=== PATIENT | female | born 1990 | race Caucasian/White ===

== ENCOUNTER 2019-05-14 08:05 | Emergency (ER) | payer MEDICAID, SELFPAY ==
[2019-05-14 08:05] VITALS: PULSE 83; RESP 18; O2SAT 98
[2019-05-14 08:07] VITALS: BP 145/101; PULSE 86; RESP 18; TEMP 36.9; O2SAT 99; BMI 36.0
--- NOTE | 2019-05-14 08:12 | ED_ITS ---
Entered by Kina Hogan, acting as scribe for Melvin Rednon DO HPI - Chest Pain General: Chief Complaint: Chest Pain Stated Complaint: Chest pain Time Seen by Provider: 05/14/19 08:09 Source: patient Mode of arrival: ambulatory Limitations: no limitations History of Present Illness: HPI narrative: 29 yo f came to the er pov for chest pain. Onset was 30-45 min ago. Pt states that she is having mid chest pain right now and pt states that she is feeling a little sob at this time. MD complaint: chest pain Onset (ago): minute(s) (30-45 min ago) Onset: during rest and during exertion Pain location: left chest Pain radiation: none Severity: mild Quality: other (pain) Relieving factors: nothing Exacerbating factors: nothing Associated symptoms: Deny abdominal pain, dyspnea, fever(s), nausea, palpitations, syncope or vomiting Risk Factors: Coronary artery disease risk factors: none Review of Systems Const: Denies: fever Eyes: Denies: change in vision or blurry vision ENMT: Denies: throat pain, oral sores/lesions, dental pain, nasal discharge or nasal congestion Card: Denies: palpitations or syncope Resp: Denies: shortness of breath GI: Denies: abdominal pain, nausea or vomiting : Denies: flank pain, painful urination, urinary frequency, urinary urgency, urinary incontinence or blood in urine Musc: Denies: neck pain, back pain, extremity pain, extremity swelling, joint pain or joint swelling Skin/Breast: Denies: rash, itching or redness Neuro: Denies: headache, numbness in extremities, weakness in extremities, changes in sensation, lack of coordination, difficulty walking, frequent falls, dizziness, vertigo or confusion Psych: Denies: anxiety, depression, loss of interest, visual hallucinations, auditory hallucinations, suicidal ideation or homicidal ideation Endo: Denies: excessive urination, excessive thirst, tired all the time or cold intolerance Frandy/Lymph: Denies: easy bruising, easy bleeding, petechiae, enlarged lymph nodes or tender lymph nodes PFSH ED PFSH: Statuses (acute, chronic, etc) shown below reflect problem list status as previously entered and may not be historically accurate Social History Smoking and tobacco status: never smoked Physical Exam Const: COMMON NORMALS: average body habitus, oriented x3 and alert GENERAL APPEARANCE: cooperative, comfortable, well kempt and well developed NUTRITIONAL APPEARANCE: obese ORIENTATION/CONSCIOUSNESS: Yes awake, Yes oriented to person and Yes oriented to place HENMT: COMMON NORMALS: normocephalic, head/scalp atraumatic, EAC's normal, TM's normal bilaterally, external nose normal, moist oral mucous membranes and oropharynx normal HEAD & SCALP: normocephalic and atraumatic NOSE: external nose normal EXTERNAL AUDITORY CANAL: EAC's normal TYMPANIC MEMBRANE: TM's normal bilaterally MOUTH: oral and palatal mucosa normal, lip normal and tongue normal THROAT: posterior oropharynx normal and tonsils normal Eye: COMMON NORMALS: PERRL, EOMs intact bilaterally, conjunctivae normal and no scleral icterus CONJUNCTIVA: Yes conjunctivae normal PUPIL: Yes PERRL Neck/C-Spine: COMMON NORMALS: full ROM, no lymphadenopathy, supple, no meningeal signs and thyroid normal THYROID: thyroid normal and asymmetrical Lymph: LYMPHATIC: no lymphadenopathy noted Resp: COMMON NORMALS: normal respiratory effort, no retractions, no use of accessory muscles and clear to auscultation bilaterally AUSCULTATION: clear to auscultation bilaterally Cardio: COMMON NORMALS: regular rate and regular rhythm RATE: regular rate RHYTHM: regular rhythm HEART SOUNDS: no murmurs GI: COMMON NORMALS: normal to inspection, nondistended, normoactive bowel sounds, soft to palpation and no hepatosplenomegaly PALPATION: Yes soft and Yes no hepatosplenomegaly : COMMON NORMALS: Yes no CVA tenderness BLADDER/KIDNEY EXAM: Yes no CVA tenderness Back/Pelvis: COMMON NORMALS: no CVA tenderness LUMBAR SPINE/LOWER BACK: Yes normal to inspection Extremity: COMMON NORMALS: no clubbing, cyanosis or edema, no calf tenderness and no pedal edema Neuro: COMMON NORMALS: oriented x3 SENSORIUM/ORIENTATION: Yes alert, Yes oriented to person and Yes oriented to place MENINGEAL SIGNS: Yes no meningeal signs Psych: APPEARANCE: Yes well kempt Skin: COMMON NORMALS: no rashes or lesions noted and skin turgor normal GENERAL SKIN EXAM: no rashes or lesions noted and turgor normal Course ED course: Reviewed findings with the patient. Her discomfort is intermittent and spasmodic like suspect it is more reflux. She has very low risk factors. She is not tachycardic or hypoxic and think is a very low likelihood of having a PE. We will go and discharge her home on a PPI Vital Signs: Vital signs: Vital Signs Temperature 98.4 F 05/14/19 08:07 Pulse Rate 89 05/14/19 09:57 Respiratory Rate 16 05/14/19 09:57 Blood Pressure 129/98 05/14/19 09:57 Pulse Oximetry 100 05/14/19 09:57 MDM - Chest Pain Lab Data: Labs: Lab Results 05/14/19 05/14/19 05/14/19 Range/Units 08:19 08:19 08:19 WBC 8.5 (4.0-10.0) 10^3/ uL RBC 4.53 (4.1-5.3) 10^6/u L Hgb 12.4 (11.5-15.3) g/dL Hct 38.1 (37.0-47.0) % MCV 84.1 (81-99) fL MCH 27.4 L (28.0-34.0) pg MCHC 32.5 (30.0-36.0) g/dL RDW 13.0 (12.1-15.1) % Plt Count 318 (130-400) 10^3/c mm MPV 9.2 (7.4-10.4) fL Neut % (Auto) 58.6 % Lymph % (Auto) 32.5 % [place] % (Auto) 6.7 % Eos % (Auto) 1.6 % Baso % (Auto) 0.5 % Neut # (Auto) 5.0 (1.8-7.7) 10^3/u L Lymph # (Auto) 2.8 (0.8-4.8) 10^3/u L [place] # (Auto) 0.6 (0.2-0.9) 10^3/u L Eos # (Auto) 0.1 (0.0-0.8) 10^3/u L Baso # (Auto) 0.0 (0.0-0.1) 10^3/u L Nucleated RBC % (a uto) 0 % Nucleated RBCs # 0.0 /100WBC Sodium 139 (136-145) mmol/L Potassium 3.8 (3.5-5.1) mmol/L Chloride 103 (98-107) mmol/L Carbon Dioxide 23 (22-29) mmol/L Anion Gap 16.8 (5-19) BUN 12 (6-20) mg/dL Creatinine 0.7 (0.5-0.9) mg/dL GFR Calculation 99.6 (90-130) mL/min Glucose 103 (74-109) mg/dL Calcium 10.1 H (8.6-10.0) mg/Dl Total Bilirubin 0.3 (0.15-1.2) mg/dL AST 18 (0-32) U/L ALT 23 (0-33) U/L Alkaline Phosphata se 94 (35-105) IU/L Troponin T Baselin e 6 (0-10) ng/mL Total Protein 7.2 (6.6-8.7) g/dL Albumin 4.9 (3.5-5.2) g/dL Globulin 2.3 (1.3-4.6) g/dL Imaging Data^: CXR: Radiologist's impression: Procedure(s): XR chest 1V portable [id number] Accession Number(s): [id number] Report Number: [id number] WS: [id number] PORTABLE CHEST HISTORY: chest pain COMPARISON: 11/20/2017 Lungs are clear and well expanded. No pleural effusion or pneumothorax. Cardiac size: Normal. Mediastinum/Aorta: Normal mediastinum. No osseous abnormality seen. XR/XR chest 1V portable [id number] IMPRESSION: Unremarkable portable chest. Dictated By:Samanta Sloan DOProcedure(s): XR chest 1V portable [id number] Accession Number(s): [id number] Report Number: [id number] WS: [id number] PORTABLE CHEST HISTORY: chest pain COMPARISON: 11/20/2017 Lungs are clear and well expanded. No pleural effusion or pneumothorax. Cardiac size: Normal. Mediastinum/Aorta: Normal mediastinum. No osseous abnormality seen. XR/XR chest 1V portable [id number] IMPRESSION: Unremarkable portable chest. Dictated By:Samanta Sloan DO EKG Data^: EKG 1: Attestation: I personally reviewed and interpreted this EKG as follows: EKG interpretation date: 05/14/19 EKG interpretation time: 08:14 Prior EKG tracings: not available for review Interpretation: nsr , no acute ST changes Discharge Plan Discharge Patient Disposition: Home, Self-Care Clinical Impression: Chest pain due to gastrointestinal reflux disease Gastro-esophageal reflux Qualifiers: Esophagitis presence: with esophagitis Qualified Code(s): K21.0 - Gastro- esophageal reflux disease with esophagitis Condition: Stable Prescriptions: New omeprazole 20 mg capsule,delayed release(DR/EC) 20 mg PO DAILY 56 Days RF: 0 Discharge Orders: Discharge Order (Routine); Ordered 05/14/19 Ordered By: Melvin Rendon Referrals: Darian Rivera MD [Primary Care Provider] - Discharge Diet: Avoid spicy foods, carbonated beverages and tomato based product s Discharge Activity: Resume usual activity Discharge Date/Time: 05/14/19 09:59 Coding Level of Care Code ED Endoscopy Technician for Chg Fwd Exam Problem Focused The documentation recorded by the Edison russell Stephanie Lyn, accurately reflects the service I personally performed and the decisions made by Justice young Curtis L, DO May 14, 2019 08:05
--- NOTE | 2019-05-14 08:22 | XR_ITS ---
WS: [id number] PORTABLE CHEST HISTORY: chest pain COMPARISON: 11/20/2017 Lungs are clear and well expanded. No pleural effusion or pneumothorax. Cardiac size: Normal. Mediastinum/Aorta: Normal mediastinum. No osseous abnormality seen. XR/XR chest 1V portable [id number] IMPRESSION: Unremarkable portable chest.
--- NOTE | 2019-05-14 08:22 | ECG_ITS ---
Measurements Intervals [place] Rate: 80 P: 48 DC: 155 QRS: 29 QRSD: 89 T: 41 QT: 373 QTc: 433 SINUS RHYTHM INTERPRETATION BASED ON A DEFAULT AGE OF 40 YEARS Compared to ECG 12/13/2018 12:20:47 No significant changes Electronically Signed On 05-14-2019 15:39:29 CONTRACTS [employer] by Shine Lanier M.D. [id number]
[2019-05-14 08:30] LABS: Basophils % 0.5 %; Eosinophils # 0.1 10^3/uL (0.0-0.8); Eosinophils % 1.6 %; Hematocrit 38.1 % (37.0-47.0); Hemoglobin 12.4 g/dL (11.5-15.3); Lymphocytes # 2.8 10^3/uL (0.8-4.8); Lymphocytes % 32.5 %; Mean Corpuscular HGB Conc 32.5 g/dL (30.0-36.0); Mean Corpuscular Hemoglobin 27.4 pg (28.0-34.0); Mean Corpuscular Volume 84.1 fL (81-99); Mean Platelet Volume 9.2 fL (7.4-10.4); Monocytes # 0.6 10^3/uL (0.2-0.9); Monocytes % 6.7 %; Neutrophils % 58.6 %; Nucleated Red Blood Cells % 0 %; Platelet Count 318 10^3/cmm (130-400); Red Blood Count 4.53 10^6/uL (4.1-5.3); White Blood Count 8.5 10^3/uL (4.0-10.0)
[2019-05-14 08:50] LABS: Alanine Aminotransferase 23 U/L (0-33); Albumin Level 4.9 g/dL (3.5-5.2); Alkaline Phosphatase 94 IU/L (35-105); Anion Gap 16.8 (5-19); Aspartate Amino Transferase 18 U/L (0-32); Blood Urea Nitrogen 12 mg/dL (6-20); Calcium 10.1 mg/Dl (8.6-10.0); Carbon Dioxide 23 mmol/L (22-29); Chloride 103 mmol/L (98-107); Globulin 2.3 g/dL (1.3-4.6); Glomerular Filtration Rate 99.6 mL/min (90-130); Glucose 103 mg/dL (74-109); Potassium 3.8 mmol/L (3.5-5.1); Sodium 139 mmol/L (136-145); Total Bilirubin 0.3 mg/dL (0.15-1.2); Total Protein 7.2 g/dL (6.6-8.7); Troponin(5th) Baseline 6 ng/mL (0-10)
[2019-05-14] MEDS: sodium chloride 0.9% 1,000 ML 999 ML IV (09:16)
[2019-05-14] MEDS: sodium chloride 0.9% 500 ML 999 ML IV (09:17)
[2019-05-14 09:57] VITALS: BP 129/98; PULSE 89; RESP 16; O2SAT 100
--- NOTE | 2019-05-14 11:44 | DCPLANNER ---
wholesale manager was asked to speak with patient about getting established with a primary care physician. wholesale manager spoke with patient, and patient stated that she would see Dr. Rivera. wholesale manager told patient that if she needed help in scheduling a follow up appointment to let case sealer know, and case sealer would help patient in scheduling an appointment.
== END 2019-05-14 09:59 | disposition home or self-care (01) ==
PROVIDERS: Emergency Provider Family Medicine; Family Provider Family Medicine; PCP Family Medicine
DX: K21.0 Gastro-esophageal reflux disease with esophagitis (principal)
CPT/HCPCS: 71045; 80053; 84484; 85025; 93005; 96360; 96361; 99281; J7030; J7040

== ENCOUNTER 2019-06-26 18:13 | Emergency (ER) | payer SELFPAY ==
[2019-06-26 18:25] VITALS: BP 149/106; PULSE 89; RESP 18; TEMP 36.9; O2SAT 99; BMI 34.7
--- NOTE | 2019-06-26 18:45 | XR_ITS ---
WS: [id number] XR chest 1V portable [id number] REASON FOR EXAM: cough FINDINGS: The lung gleason are adequately aerated. There is no pneumonia, pleural effusion, pulmonary edema, no pneumothorax. There is calcified granulomas in both perihilar areas. The chest is similar to previous exam of May 14, 2019. The hilum and apices are normal. XR/XR chest 1V portable [id number] IMPRESSION: Negative chest for active cardiopulmonary disease.
--- NOTE | 2019-06-26 18:46 | ECG_ITS ---
Measurements Intervals [place] Rate: 74 P: 44 FL: 175 QRS: 23 QRSD: 89 T: 42 QT: 389 QTc: 434 SINUS RHYTHM Compared to ECG 05/14/2019 08:14:00 No significant changes Electronically Signed On 06-27-2019 14:11:57 BREAD MOLDER by Shine Lanier M.D. [id number]
--- NOTE | 2019-06-26 18:51 | ED_ITS ---
Entered by Kaitlynn Goodwin, acting as scribe for HPI - General Adult General: Chief complaint: General Medical Stated complaint: HTN, ARMS TINGLING, DIZZZY Time Seen by Provider: 06/26/19 18:45 Source: patient Mode of arrival: ambulatory Limitations: no limitations History of Present Illness: HPI narrative: 29 yo female presents with high blood pressure. pt states she was sitting in class and she started feeling weird. Her head started tingling in the back of her head. She has a family history of high blood pressure and heart disease. Pt denies any other symptoms at this time. MD complaint: high blood pressure, dizziness Onset (ago): day(s) (just travel pta) Location: head Radiation: non-radiation Severity: moderate Pain Consistency: constant Relieving factors: none Exacerbating factors: movement Associated symptoms: Reports other (dizziness); Deny chest pain, confusion, diaphoresis, dyspnea, headache(s), malaise, nausea, rash, palpitations, syncope or vomiting Treatments prior to arrival: none Review of Systems General: Reports: 10 or more systems reviewed and unremarkable except in HPI and below Const: Denies: fever, chills, body aches, fatigue, malaise or diaphoresis Eyes: Denies: change in vision or blurry vision ENMT: Denies: throat pain, painful swallowing, hoarseness, ear pain, ear discharge, Change in hearing or nasal discharge Card: Denies: chest pain, palpitations, irregular heart rhythm, syncope, pre- syncope, shortness of breath on exertion or shortness of breath when lying down Resp: Denies: shortness of breath, productive cough, non-productive cough, wheezing, coughing up blood or chest congestion GI: Denies: abdominal pain, nausea, vomiting, vomiting blood, coffee grounds in vomit, diarrhea, constipation, cramping, blood in stool or black tarry stool : Denies: flank pain, painful urination, urinary frequency, urinary urgency, decreased urine ouput, urinary incontinence or blood in urine Musc: Denies: neck pain, back pain, extremity pain, extremity swelling, joint pain, joint swelling, joint warmth or joint stiffness Skin/Breast: Denies: rash, skin tenderness or yellow skin Neuro: Denies: headache, numbness in extremities, weakness in extremities, changes in sensation, lack of coordination, difficulty walking, dizziness, vertigo or confusion Endo: Denies: excessive thirst, tired all the time, cold intolerance, excessive sweating, flushing or hot flashes Frandy/Lymph: Denies: easy bruising, easy bleeding, petechiae or enlarged lymph nodes All/Imm: Denies: hives, throat swelling, tongue swelling, facial swelling or acute wheezing PFSH ED PFSH: Social History Smoking and tobacco status: never smoked Female Reproductive History: Date of last menstrual period: 06/08/19 Physical Exam Const: COMMON NORMALS: no apparent distress, oriented x3, no limitations, healthy appearing and well nourished EXAM LIMITATIONS: no altered mental status GENERAL APPEARANCE: cooperative, well kempt and well developed ORIENTATION/CONSCIOUSNESS: Yes awake HENMT: COMMON NORMALS: normocephalic, head/scalp atraumatic, hearing grossly normal bilaterally, external ears normal, EAC's normal, external nose normal and moist oral mucous membranes HEAD & SCALP: normal to inspection, normocephalic and atraumatic FACE & SINUS: normal facial exam and face symmetric NOSE: external nose normal and nares normal EXTERNAL EAR: Yes external ears normal EXTERNAL AUDITORY CANAL: EAC's normal MOUTH: oral and palatal mucosa normal and tongue normal Eye: COMMON NORMALS: PERRL, EOMs intact bilaterally, conjunctivae normal and no scleral icterus GENERAL EYE: normal appearance of both eyes and normal light reflex CONJUNCTIVA: Yes conjunctivae normal SCLERA: sclerae normal CORNEA: Yes corneas normal PUPIL: Yes PERRL DIRECT OPHTHALMOSCOPY: Yes normal light reflex Neck/C-Spine: COMMON NORMALS: full ROM, no lymphadenopathy, supple, no meningeal signs and no JVD GENERAL: Yes normal visual inspection and Yes trachea midline CERVICAL SPINE: Yes cervical ROM normal Chest: COMMONS NORMALS: inspection of chest normal and palpation of chest normal Resp: COMMON NORMALS: normal respiratory effort, no retractions, no use of accessory muscles and clear to auscultation bilaterally EFFORT & INSPECTION: Yes able to speak in complete sentences AUSCULTATION: clear to auscultation bilaterally Cardio: COMMON NORMALS: no JVD, regular rate, regular rhythm, S1 normal heart sound, S2 normal heart sound, no gallops, no clicks, no murmurs and no rub JUGULAR VENOUS DISTENTION: no JVD RATE: regular rate RHYTHM: regular rhythm HEART SOUNDS: S1 normal and S2 normal GI: COMMON NORMALS: soft to palpation, non-tender, no hepatosplenomegaly and no masses INSPECTION: Yes normal to inspection PALPATION: Yes soft and Yes no hepatosplenomegaly : COMMON NORMALS: Yes no CVA tenderness BLADDER/KIDNEY EXAM: Yes no CVA tenderness Back/Pelvis: COMMON NORMALS: no CVA tenderness, thoracic and lumbar spine normal to inspection, no thoracic nor lumbar tenderness and thoraco-lumbar ROM normal Extremity: COMMON NORMALS: normal to inspection, full ROM, normal capillary refill, no joint enlargement, no clubbing, cyanosis or edema and no calf tenderness Neuro: COMMON NORMALS: oriented x3, CN's II-XII intact bilaterally, moves all extremities, no focal motor deficits and no sensory deficits noted MENINGEAL SIGNS: Yes no meningeal signs Psych: COMMON NORMALS: mental status grossly normal, thought process normal, cooperative, affect normal, speech normal and activity/motor behavior normal APPEARANCE: Yes well kempt SPEECH: Yes normal speech THOUGHT PROCESS: n ormal thought process Skin: COMMON NORMALS: no rashes or lesions noted, skin turgor normal, no jaundice, no petechiae and no mottling GENERAL SKIN EXAM: no rashes or lesions noted and turgor normal Course Vital Signs: Vital signs: Vital Signs Temperature 98.5 F 06/26/19 18:25 Pulse Rate 89 06/26/19 18:25 Respiratory Rate 16 06/26/19 20:34 Blood Pressure 122/93 06/26/19 20:34 Pulse Oximetry 99 06/26/19 18:25 MDM - General Adult MDM Narrative: Medical decision making narrative: The patient comes in complaining of elevated blood pressure and she is not feeling well . Her exam is normal and her work-up here is normal. She denies any urinary symptoms or the possibility of being . He has no headache, no vomiting, no fever, no rash or other acute life-threatening sign or symptom. The patient is satisfied to hear that things here are normal but understands if her symptoms change or worsen in any way she needs to return to the ER immediately and she agrees to do so. Lab Data: Labs: Lab Results 06/26/19 06/26/19 06/26/19 Range/Units 19:16 19:16 19:16 WBC 6.7 (4.0-10.0) 10^3/ uL RBC 4.64 (4.1-5.3) 10^6/u L Hgb 12.6 (11.5-15.3) g/dL Hct 39.1 (37.0-47.0) % MCV 84.3 (81-99) fL MCH 27.2 L (28.0-34.0) pg MCHC 32.2 (30.0-36.0) g/dL RDW 12.6 (12.1-15.1) % Plt Count 289 (130-400) 10^3/c mm MPV 9.1 (7.4-10.4) fL Neut % (Auto) 62.0 % Lymph % (Auto) 27.9 % [place] % (Auto) 6.6 % Eos % (Auto) 2.5 % Baso % (Auto) 0.7 % Neut # (Auto) 4.2 (1.8-7.7) 10^3/u L Lymph # (Auto) 1.9 (0.8-4.8) 10^3/u L [place] # (Auto) 0.4 (0.2-0.9) 10^3/u L Eos # (Auto) 0.2 (0.0-0.8) 10^3/u L Baso # (Auto) 0.1 (0.0-0.1) 10^3/u L Nucleated RBC % (a uto) 0 % Nucleated RBCs # 0.0 /100WBC Sodium 136 (136-145) mmol/L Potassium 3.6 (3.5-5.1) mmol/L Chloride 101 (98-107) mmol/L Carbon Dioxide 23 (22-29) mmol/L Anion Gap 15.6 (5-19) BUN 9 (6-20) mg/dL Creatinine 0.7 (0.5-0.9) mg/dL GFR Calculation 99.6 (90-130) mL/min Glucose 94 (65-115) mg/dL Calcium 9.5 (8.5-10.5) mg/dL Magnesium 2.0 (1.7-2.3) mg/dL Total Bilirubin 0.3 (0.15-1.2) mg/dL AST 15 (0-32) U/L ALT 18 (0-33) U/L Alkaline Phosphata se 98 (35-105) IU/L Troponin T Baselin e 6 (0-10) ng/mL Total Protein 7.4 (6.6-8.7) g/dL Albumin 4.5 (3.5-5.2) g/dL Globulin 2.9 (1.3-4.6) g/dL Imaging Data^: CXR: Attestation: I personally reviewed and interpreted this imaging study as follows: My impression: No acute cardiopulmonary findings. EKG Data^: EKG 1: Attestation: I personally reviewed and interpreted this EKG as follows: EKG interpretation date: 06/26/19 EKG interpretation time: 19:07 Interpretation: Normal sinus rhythm at 72 beats a minute, no acute ST-T wave changes. EKG 2: Attestation: I personally reviewed and interpreted this EKG as follows: EKG interpretation date: 06/26/19 EKG interpretation time: 20:19 Interpretation: Normal sinus rhythm at 74 beats a minute, no acute ST or T wave changes. Discharge Plan Discharge Patient Disposition: Home, Self-Care Clinical Impression: Hypertension Qualifiers: Hypertension type: unspecified Qualified Code(s): I10 - Essential (primary) hypertension Condition: Stable Prescriptions: No Action No Known Home Medications RF: 0 Discharge Orders: Discharge Order (Routine); Ordered 06/26/19 Ordered By: Anne Farley Referrals: Darian Rivera MD [Primary Care Provider] - 1-3 days Discharge Diet: Low Salt and Low Cholesterol Discharge Activity: Increase activity as tolerated Patient Instructions: Hypertension (ED) Activity Restrictions/Additional Instructions: Please return to the ER immediately for any of the signs or symptoms listed on your discharge instruction sheets, worsening/changing of your symptoms, you are not getting better as quickly as expected, or for ANY other cause or concerns. Stand Alone Forms: Work/School Release Discharge Date/Time: 06/26/19 20:35 Coding Level of Care Code ED Roading Engineer for Chg Fwd Exam Comprehensive The documentation recorded by the Buddy russell Bridget Annette, accurately reflects the service I personally performed and the decisions made by Martine young Eli N Jun 26, 2019 18:13
[2019-06-26 19:30] VITALS: BP 121/91
[2019-06-26 19:37] LABS: Basophils # 0.1 10^3/uL (0.0-0.1); Basophils % 0.7 %; Eosinophils # 0.2 10^3/uL (0.0-0.8); Eosinophils % 2.5 %; Hematocrit 39.1 % (37.0-47.0); Hemoglobin 12.6 g/dL (11.5-15.3); Lymphocytes # 1.9 10^3/uL (0.8-4.8); Lymphocytes % 27.9 %; Mean Corpuscular HGB Conc 32.2 g/dL (30.0-36.0); Mean Corpuscular Hemoglobin 27.2 pg (28.0-34.0); Mean Corpuscular Volume 84.3 fL (81-99); Mean Platelet Volume 9.1 fL (7.4-10.4); Monocytes # 0.4 10^3/uL (0.2-0.9); Monocytes % 6.6 %; Neutrophils # 4.2 10^3/uL (1.8-7.7); Nucleated Red Blood Cells % 0 %; Platelet Count 289 10^3/cmm (130-400); Red Blood Count 4.64 10^6/uL (4.1-5.3); Red Cell Distribution Width 12.6 % (12.1-15.1); White Blood Count 6.7 10^3/uL (4.0-10.0)
[2019-06-26 19:41] LABS: Alanine Aminotransferase 18 U/L (0-33); Albumin Level 4.5 g/dL (3.5-5.2); Alkaline Phosphatase 98 IU/L (35-105); Anion Gap 15.6 (5-19); Aspartate Amino Transferase 15 U/L (0-32); Blood Urea Nitrogen 9 mg/dL (6-20); Calcium 9.5 mg/dL (8.5-10.5); Carbon Dioxide 23 mmol/L (22-29); Chloride 101 mmol/L (98-107); Globulin 2.9 g/dL (1.3-4.6); Glomerular Filtration Rate 99.6 mL/min (90-130); Glucose 94 mg/dL (65-115); Potassium 3.6 mmol/L (3.5-5.1); Sodium 136 mmol/L (136-145); Total Bilirubin 0.3 mg/dL (0.15-1.2); Total Protein 7.4 g/dL (6.6-8.7)
[2019-06-26 19:43] LABS: Troponin(5th) Baseline 6 ng/mL (0-10)
[2019-06-26 20:34] VITALS: BP 122/93; RESP 16
== END 2019-06-26 20:35 | disposition home or self-care (01) ==
PROVIDERS: Emergency Provider Emergency Medicine; Family Provider Family Medicine; PCP Family Medicine
DX: I10 Essential (primary) hypertension (principal); Z82.49 Family history of ischemic heart disease and other diseases of the circulatory system
CPT/HCPCS: 71045; 80053; 83735; 84484; 85025; 93005; 99281; 99284

== ENCOUNTER → 2019-07-13 11:06 | Outpatient (BNVA) | payer SELFPAY | PROVIDERS: Family Provider Family Medicine; PCP Family Medicine; Visit Provider Nurse Practitioner | DX: R50.9 Fever, unspecified (principal); B34.9 Viral infection, unspecified | CPT/HCPCS: 87804 ==

== ENCOUNTER 2019-09-17 17:19 | Emergency (ER) | payer SELFPAY ==
[2019-09-17] VITALS (8 sets, daily range): BP systolic 103–138; BP diastolic 82–103; PULSE 71–92; RESP 16; TEMP 37.3; O2SAT 97–99; BMI 36.0
--- NOTE | 2019-09-17 18:54 | CTR_ITS ---
PROCEDURE INFORMATION: Exam: CT Abdomen And Pelvis With Contrast Exam date and time: 09/17/2019 7:03 PM Age: 29 years old Clinical indication: Abdominal pain; Generalized; Prior surgery; Surgery type: Gb; Patient HX: Abd pain with nausea. History of ibs. TECHNIQUE: Imaging protocol: Computed tomography of the abdomen and pelvis with intravenous contrast. Radiation optimization: All CT scans at this facility use at least one of these dose optimization techniques: automated exposure control; mA and/or kV adjustment per patient size (includes targeted exams where dose is matched to clinical indication); or iterative reconstruction. Contrast material: OMNI 300; Contrast volume: 95 ml; Contrast route: 20G LEFT HAND; COMPARISON: CT abdomen pelvis w con* [id number] 11/20/2017 7:38 AM RADIATION DOSE METRICS: Total DLP: 940.97 mGy-cm FINDINGS: Lungs: Limited assessment lung bases without evidence for active cardiopulmonary process. Liver: Unremarkable. No mass. Gallbladder and bile ducts: Status post cholecystectomy. No visible intra or extrahepatic biliary ectasia. Pancreas: Normal. No ductal dilation. Spleen: Normal. No splenomegaly. Adrenals: Normal. No mass. Kidneys and ureters: Normal. No hydronephrosis. Stomach and bowel: Nonobstructive bowel pattern. No evidence for adynamic or reactive ileus. No findings of diverticulosis coli or diverticulitis. Appendix: No evidence of appendicitis. Intraperitoneal space: No free fluid the pelvis. No evidence for mesenteritis/panniculitis or mesenteric lymphadenitis. Vasculature: Unremarkable. No abdominal aortic aneurysm. Lymph nodes: Unremarkable. No enlarged lymph nodes. Bladder: Unremarkable as visualized. Reproductive: Unremarkable as visualized. Bones/joints: Unremarkable. No acute fracture. Soft tissues: Unremarkable. CT/CT abdomen pelvis w con* [id number] IMPRESSION: No visible evidence of active or acute abdominal or pelvic pathologic process. Radiation Dose CTDIVOL = (mGy): DLP = 940.97 (mGy-cm)
--- NOTE | 2019-09-17 19:03 | W.ED.GIBLEED ---
HPI - GI Bleed General: Chief complaint: GI Bleed Stated complaint: BLOOD IN STOOL Time Seen by Provider: 09/17/19 18:50 History of Present Illness: HPI Narrative: Pepito is a nice 29-year-old female who comes in complaining of diarrhea for the past 2 months. She thought this was related to her IBS but over the past few days she has began to have blood in her stools. She only has some cramping abdominal pain at that time she has a bowel movement and the urgency to go but otherwise she denies any complaints. She has no fever, chills, vomiting but does have nausea. She denies any urinary symptoms or vaginal discharge or bleeding. Associated symptoms: Reports abdominal pain and nausea; Denies chills, easy bruising, fever(s), headache(s), malaise, rash, syncope or vomiting Review of Systems Const: Denies: fever(s), chills, body aches, fatigue, malaise, night sweats or diaphoresis Eyes: Denies: change in vision, blurry vision or blind spots ENMT: Denies: throat pain, odynophagia, hoarseness, ear or mastoid pain, ear discharge, change in hearing or nasal discharge Card: Denies: chest pain, palpitations, irregular heart rhythm, lightheadedness, syncope, pre-syncope, dyspnea on exertion or orthopnea Resp: Denies: dyspnea, productive cough, non-productive cough, wheezing, hemoptysis or chest congestion GI: Reports: abdominal pain and nausea; Denies: vomiting, hematemesis, coffee ground emesis, heartburn, diarrhea, constipation or melena : Denies: flank pain, dysuria, urinary frequency, urinary urgency, oliguria, urinary incontinence or hematuria Musc: Denies: neck pain, back pain, extremity pain, extremity swelling, joint pain, joint swelling, joint redness, joint warmth or joint stiffness Skin/Breast: Denies: rash, pruritus, erythema, skin tenderness or jaundice Neuro: Denies: headache(s), numbness in extremities, weakness in extremities, sensory changes, lack of coordination, difficulty walking, dizziness, vertigo, confusion or Slurred speech present Endo: Denies: polyuria, polydipsia, tired all the time, cold intolerance, excessive sweating, flushing, hot flashes or heat intolerance Frandy/Lymph: Denies: easy bruising, easy bleeding, petechiae, purpura or enlarged lymph nodes All/Imm: Denies: urticaria, throat swelling, tongue swelling, facial swelling or acute wheezing PFSH ED PFSH: Medical History Gastro-esophageal reflux History of IBS Surgical History S/P cholecystectomy Social History Smoking and tobacco status: former smoker Female Reproductive History: Date of last menstrual period: 08/20/19 Physical Exam Const: COMMON NORMALS: no acute distress, patient oriented x3, no limitations, healthy appearing and well nourished EXAM LIMITATIONS: no altered mental status GENERAL APPEARANCE: cooperative, well kempt and well developed HENMT: COMMON NORMALS: normocephalic, atraumatic, hearing grossly normal bilaterally, external ears normal, EAC's normal, Normal external nose present and moist oral mucous membranes HEAD & SCALP: normal to inspection, normocephalic and atraumatic FACE & SINUS: normal facial exam and face symmetric NOSE: Normal external nose present and Normal nares present EXTERNAL EAR: Yes external ears normal EXTERNAL AUDITORY CANAL: EAC's normal MOUTH: Normal oral and palatal mucosa present, lip normal and tongue normal Eye: COMMON NORMALS: Equal, round and reactive pupils present, EOMs intact bilaterally, conjunctivae normal and no scleral icterus GENERAL EYE: appearance normal, both eyes and all related structures and normal light reflex ALIGNMENT: Yes alignment normal PERIORBITAL: periorbital findings normal EYELID: eyelids normal CONJUNCTIVA: Yes conjunctivae normal SCLERA: sclerae normal PUPIL: Yes Equal, round and reactive pupils present DIRECT OPHTHALMOSCOPY: Yes normal light reflex Neck/C-Spine: COMMON NORMALS: full ROM, no lymphadenopathy, supple, no meningeal signs and no JVD GENERAL: Yes normal visual inspection and Yes trachea midline CERVICAL SPINE: Yes cervical ROM normal Chest: COMMONS NORMALS: normal inspection of the chest and normal palpation of entire chest wall Resp: COMMON NORMALS: normal respiratory effort, No retractions, No use of accessory muscles and clear to auscultation bilaterally EFFORT & INSPECTION: Yes able to speak in complete sentences AUSCULTATION: clear to auscultation bilaterally, no crackles, no rales, no rhonchi and no wheezes Cardio: COMMON NORMALS: no JVD, regular rate, regular rhythm, S1 normal heart sound present, S2 normal heart sound present, No gallops present (Cardio), No clicks present (Cardio), No murmurs present (Cardio) and No rub (Cardio) RATE: regular rate RHYTHM: regular rhythm HEART SOUNDS: S1 normal heart sound present, S2 normal heart sound present, no click, no gallops, no murmurs and no rubs GI: COMMON NORMALS: Soft to palpation, non-tender, No hepatosplenomegaly present and no masses PALPATION: Yes Soft to palpation, No Tenderness to palpation present (GI), No Guarding due to palpation present (GI), No Rigid due to palpation, Yes No hepatosplenomegaly present, No Hernia present, No Palpable mass present and No Pulsatile mass present : COMMON NORMALS: Yes no CVA tenderness BLADDER/KIDNEY EXAM: Yes no CVA tenderness EXTERNAL FEMALE EXAM: No Hernia present Back/Pelvis: COMMON NORMALS: no CVA tenderness, thoracic and lumbar spine normal to inspection, no thoracic nor lumbar tenderness and thoraco-lumbar ROM normal Extremity: COMMON NORMALS: normal to inspection, full ROM, capillary refill normal, no joint enlargement, no clubbing, cyanosis or edema and no calf tenderness Neuro: COMMON NORMALS: patient oriented x3, CN's II-XII intact bilaterally, moves all extremities, no focal motor deficits and no sensory deficits noted MENINGEAL SIGNS: Yes no meningeal signs SPEECH: speech normal Psych: COMMON NORMALS: mental status grossly normal, Normal thought process present, cooperative, normal affect, speech normal and activity/motor behavior normal APPEARANCE: Yes well kempt SPEECH: Yes normal speech THOUGHT PROCESS: Normal thought process present Skin: COMMON NORMALS: no rashes or lesions noted, turgor normal, no jaundice, no petechiae and no mottling GENERAL SKIN EXAM: no rashes or lesions noted and turgor normal Course ED course: 1924 -orthostatic vital signs - normal. Vital Signs: Vital signs: Vital Signs Temperature 99.1 F 09/17/19 17:51 Pulse Rate 92 09/17/19 22:01 Respiratory Rate 16 09/17/19 22:01 Blood Pressure 103/85 09/17/19 22:01 Pulse Oximetry 98 09/17/19 22:01 MDM - GI Bleed MDM Narrative: Medical decision making narrative: The case in its entirety was reviewed with Dr. Rivera. He states the patient stool sample has gone out from their office to the lab but should be back within the next day or 2. He agrees to withhold antibiotics at this time for the concern of E. coli [id number]. The patient agrees to discontinue keeping herself hydrated and may try some [id number] probiotics but will follow-up with Dr. Rivera. Lab Data: Attestation: I reviewed the patient's lab results. Labs: Lab Results 09/17/19 09/17/19 09/17/19 Range/Units 19:10 19:10 19:10 WBC 7.8 (4.0-10.0) 10^3/ uL RBC 4.62 (4.1-5.3) 10^6/u L Hgb 13.2 (11.5-15.3) g/dL Hct 42.0 (37.0-47.0) % MCV 90.9 (81-99) fL MCH 28.6 (28.0-34.0) pg MCHC 31.4 (30.0-36.0) g/dL RDW 13.4 (12.1-15.1) % Plt Count 308 (130-400) 10^3/c mm MPV 9.1 (7.4-10.4) fL Neut % (Auto) 56.7 % Lymph % (Auto) 33.2 % [place] % (Auto) 6.8 % Eos % (Auto) 2.2 % Baso % (Auto) 0.8 % Neut # (Auto) 4.4 (1.8-7.7) 10^3/u L Lymph # (Auto) 2.6 (0.8-4.8) 10^3/u L [place] # (Auto) 0.5 (0.2-0.9) 10^3/u L Eos # (Auto) 0.2 (0.0-0.8) 10^3/u L Baso # (Auto) 0.1 (0.0-0.1) 10^3/u L Nucleated RBC % (a uto) 0 % Nucleated RBCs # 0.0 /100WBC PT 13.00 (10.5-13.3) SECO NDS INR 0.95 (0.8-1.2) Sodium 136 (136-145) mmol/L Potassium 3.9 (3.5-5.1) mmol/L Chloride 103 (98-107) mmol/L Carbon Dioxide 24 (22-29) mmol/L Anion Gap 12.9 (5-19) BUN 10 (6-20) mg/dL Creatinine 0.8 (0.5-0.9) mg/dL GFR Calculation 85.4 L (90-130) mL/min Glucose 89 (65-115) mg/dL Calculated Osmolal ity 277 L (285-295) mOsm/k g Calcium 9.9 (8.5-10.5) mg/dL Total Bilirubin 0.5 (0.15-1.2) mg/dL AST 15 (0-32) U/L ALT 17 (0-33) U/L Alkaline Phosphata se 78 (35-105) IU/L Total Protein 7.9 (6.6-8.7) g/dL Albumin 4.8 (3.5-5.2) g/dL Globulin 3.1 (1.3-4.6) g/dL HCG, Qual (Negative) Urine Color (Yellow) Urine Appearance (CLEAR) Urine pH (5-7) Ur Specific Gravit y (1.005-1.030) Urine Protein (Negative) Urine Glucose (UA) (Normal) Urine Ketones (Negative) Urine Blood (Negative) Urine Nitrate (Negative) Urine Bilirubin (NEGATIVE) Urine Urobilinogen (Negative) mg/dL Ur Leukocyte Briana ase (Negative) 09/17/19 09/17/19 Range/Units 19:10 19:20 WBC (4.0-10.0) 10^3/ uL RBC (4.1-5.3) 10^6/u L Hgb (11.5-15.3) g/dL Hct (37.0-47.0) % MCV (81-99) fL MCH (28.0-34.0) pg MCHC (30.0-36.0) g/dL RDW (12.1-15.1) % Plt Count (130-400) 10^3/c mm MPV (7.4-10.4) fL Neut % (Auto) % Lymph % (Auto) % [place] % (Auto) % Eos % (Auto) % Baso % (Auto) % Neut # (Auto) (1.8-7.7) 10^3/u L Lymph # (Auto) (0.8-4.8) 10^3/u L [place] # (Auto) (0.2-0.9) 10^3/u L Eos # (Auto) (0.0-0.8) 10^3/u L Baso # (Auto) (0.0-0.1) 10^3/u L Nucleated RBC % (a uto) % Nucleated RBCs # /100WBC PT (10.5-13.3) SECO NDS INR (0.8-1.2) Sodium (136-145) mmol/L Potassium (3.5-5.1) mmol/L Chloride (98-107) mmol/L Carbon Dioxide (22-29) mmol/L Anion Gap (5-19) BUN (6-20) mg/dL Creatinine (0.5-0.9) mg/dL GFR Calculation (90-130) mL/min Glucose (65-115) mg/dL Calculated Osmolal ity (285-295) mOsm/k g Calcium (8.5-10.5) mg/dL Total Bilirubin (0.15-1.2) mg/dL AST (0-32) U/L ALT (0-33) U/L Alkaline Phosphata se (35-105) IU/L Total Protein (6.6-8.7) g/dL Albumin (3.5-5.2) g/dL Globulin (1.3-4.6) g/dL HCG, Qual Negative (Negative) Urine Color Yellow (Yellow) Urine Appearance Clear (CLEAR) Urine pH 8 H (5-7) Ur Specific Gravit y 1.010 (1.005-1.030) Urine Protein Neg (Negative) Urine Glucose (UA) Norm (Normal) Urine Ketones Negative (Negative) Urine Blood Neg (Negative) Urine Nitrate Negative (Negative) Urine Bilirubin Neg (NEGATIVE) Urine Urobilinogen Norm (Negative) mg/dL Ur Leukocyte Briana ase Negative (Negative) Imaging Data^: CT Abd/Pel: Radiologist's impression: [address] [address] [address] Scan Report Signed Patient: Pepito Ovalle Unit #: [id number] : 1990 Age/Sex: 29 / F ADM Date: 09/17/19 Loc: ER Room/Bed: Attending Dr: Ordering Provider/Ordering MD: Anne Farley DO Date of Service: 09/17/19 Procedure(s): CT abdomen pelvis w con* [id number] Accession Number(s): [id number] Report Number: [id number] PROCEDURE INFORMATION: Exam: CT Abdomen And Pelvis With Contrast Exam date and time: 09/17/2019 7:03 PM Age: 29 years old Clinical indication: Abdominal pain; Generalized; Prior surgery; Surgery type: Gb; Patient HX: Abd pain with nausea. History of ibs. TECHNIQUE: Imaging protocol: Computed tomography of the abdomen and pelvis with intravenous contrast. Radiation optimization: All CT scans at this facility use at least one of these dose optimization techniques: automated exposure control; mA and/or kV adjustment per patient size (includes targeted exams where dose is matched to clinical indication); or iterative reconstruction. Contrast material: OMNI 300; Contrast volume: 95 ml; Contrast route: 20G LEFT HAND; COMPARISON: CT abdomen pelvis w con* [id number] 11/20/2017 7:38 AM RADIATION DOSE METRICS: Total DLP: 940.97 mGy-cm FINDINGS: Lungs: Limited assessment lung bases without evidence for active cardiopulmonary process. Liver: Unremarkable. No mass. Gallbladder and bile ducts: Status post cholecystectomy. No visible intra or extrahepatic biliary ectasia. Pancreas: Normal. No ductal dilation. Spleen: Normal. No splenomegaly. Adrenals: Normal. No mass. Kidneys and ureters: Normal. No hydronephrosis. Stomach and bowel: Nonobstructive bowel pattern. No evidence for adynamic or reactive ileus. No findings of diverticulosis coli or diverticulitis. Appendix: No evidence of appendicitis. Intraperitoneal space: No free fluid the pelvis. No evidence for mesenteritis/panniculitis or mesenteric lymphadenitis. Vasculature: Unremarkable. No abdominal aortic aneurysm. Lymph nodes: Unremarkable. No enlarged lymph nodes. Bladder: Unremarkable as visualized. Reproductive: Unremarkable as visualized. Bones/joints: Unremarkable. No acute fracture. Soft tissues: Unremarkable. CT/CT abdomen pelvis w con* [id number] IMPRESSION: No visible evidence of active or acute abdominal or pelvic pathologic process. Radiation Dose CTDIVOL = (mGy): DLP = 940.97 (mGy-cm) Dictated By: Lefty Mayers Signed By: Lefty Mayers Signed Date/Time: 09/17/192049 DD/ 47 Discharge Plan Discharge Patient Disposition: Home, Self-Care Clinical Impression: Hematochezia Diarrhea Qualifiers: Diarrhea type: unspecified type Qualified Code(s): R19.7 - Diarrhea, unspecified Condition: Stable Prescriptions: No Action No Known Home Medications RF: 0 Discharge Orders: Discharge Order (Routine); Ordered 09/17/19 Ordered By: Anne Farley Referrals: Darian Rivera MD [Primary Care Provider] - 1-3 days Discharge Diet: Advance as tolerated Discharge Activity: Increase activity as tolerated Patient Instructions: Acute Diarrhea (ED) Activity Restrictions/Additional Instructions: Please return to the ER immediately for any of the signs or symptoms listed on your discharge instruction sheets, worsening/changing of your symptoms, you are not getting better as quickly as expected, or for ANY other cause or concerns. Be certain to follow-up with Dr. Rivera for the results of your stool studies to see if you will need antibiotics to clear up your diarrhea. Return to ER for increased pain, fever, more blood in your stools, or for any other cause for concern. Discharge Date/Time: 09/17/19 22:09 Coding Level of Care Code ED Offset Label Rewinder for Chg Fwd Exam Comprehensive
[2019-09-17 19:22] LABS: Basophils # 0.1 10^3/uL (0.0-0.1); Basophils % 0.8 %; Eosinophils # 0.2 10^3/uL (0.0-0.8); Eosinophils % 2.2 %; Hemoglobin 13.2 g/dL (11.5-15.3); Lymphocytes # 2.6 10^3/uL (0.8-4.8); Lymphocytes % 33.2 %; Mean Corpuscular HGB Conc 31.4 g/dL (30.0-36.0); Mean Corpuscular Hemoglobin 28.6 pg (28.0-34.0); Mean Corpuscular Volume 90.9 fL (81-99); Mean Platelet Volume 9.1 fL (7.4-10.4); Monocytes # 0.5 10^3/uL (0.2-0.9); Monocytes % 6.8 %; Neutrophils # 4.4 10^3/uL (1.8-7.7); Neutrophils % 56.7 %; Nucleated Red Blood Cells % 0 %; Platelet Count 308 10^3/cmm (130-400); Red Blood Count 4.62 10^6/uL (4.1-5.3); Red Cell Distribution Width 13.4 % (12.1-15.1); White Blood Count 7.8 10^3/uL (4.0-10.0)
[2019-09-17 19:34] LABS: INR 0.95 (0.8-1.2)
[2019-09-17] MEDS: sodium chloride 0.9% 1,000 ML 999 ML IV (19:40)
[2019-09-17] MEDS: sodium chloride 0.9% 1,000 ML 100 ML IV (19:40)
[2019-09-17 19:41] LABS: Alanine Aminotransferase 17 U/L (0-33); Albumin Level 4.8 g/dL (3.5-5.2); Alkaline Phosphatase 78 IU/L (35-105); Anion Gap 12.9 (5-19); Aspartate Amino Transferase 15 U/L (0-32); Blood Urea Nitrogen 10 mg/dL (6-20); Calcium 9.9 mg/dL (8.5-10.5); Carbon Dioxide 24 mmol/L (22-29); Chloride 103 mmol/L (98-107); Globulin 3.1 g/dL (1.3-4.6); Glomerular Filtration Rate 85.4 mL/min (90-130); Glucose 89 mg/dL (65-115); Osmolality Calculated 277 mOsm/kg (285-295); Potassium 3.9 mmol/L (3.5-5.1); Sodium 136 mmol/L (136-145); Total Bilirubin 0.5 mg/dL (0.15-1.2); Total Protein 7.9 g/dL (6.6-8.7)
[2019-09-17 19:53] LABS: Add Urine Microscopic? NO
[2019-09-17 19:57] LABS: HCG, Serum Qual Negative (Negative)
[2019-09-17 20:02] LABS: Bilirubin Urine Neg (NEGATIVE); Blood Urine Neg (Negative); Glucose Urine UA Norm (Normal); Ketones Urine Negative (Negative); Leukocyte Esterase Urine Negative (Negative); Nitrate Urine Negative (Negative); Protein Urine Neg (Negative); Urine Appearance Clear (CLEAR); Urine Color Yellow (Yellow); Urobilinogen Urine Norm (Negative); pH Urine 8 (5-7)
[2019-09-17] MEDS: iohexol 300 mg/mL 100 mL Btl IV (20:23)
== END 2019-09-17 22:09 | disposition home or self-care (01) ==
PROVIDERS: Emergency Medicine; Emergency Provider Emergency Medicine; PCP Family Medicine
DX: K92.1 Melena (principal); R19.7 Diarrhea, unspecified; Z87.891 Personal history of nicotine dependence
CPT/HCPCS: 12345; 36415; 74177; 80053; 81003; 84703; 85025; 85610; 96360; 96361; 99283; J7030; Q9967

== ENCOUNTER → 2019-11-03 13:29 | Outpatient (BNVA) | payer SELFPAY | PROVIDERS: PCP Family Medicine; Visit Provider Nurse Practitioner | DX: R05 Cough (principal) | CPT/HCPCS: 87635 ==

== ENCOUNTER → 2019-12-30 11:00 | Outpatient (BNVA) | payer SELFPAY | PROVIDERS: PCP Family Medicine; Visit Provider Nurse Practitioner Family | DX: J06.9 Acute upper respiratory infection, unspecified (principal); Z20.828 Contact with and (suspected) exposure to other viral communicable diseases | CPT/HCPCS: 87635 ==

== ENCOUNTER → 2020-06-15 16:13 | Outpatient (BNVA) | payer OTHER, SELFPAY | PROVIDERS: Visit Provider Physician Assistant | DX: Z20.828 Contact with and (suspected) exposure to other viral communicable diseases (principal) | CPT/HCPCS: 87635 ==

== ENCOUNTER 2020-11-12 04:27 | Inpatient (IN) | payer MEDICAID, SELFPAY ==
[2020-11-12] VITALS (8 sets, daily range): BP systolic 114–148; BP diastolic 66–116; PULSE 66–82; RESP 14–18; TEMP 36.7–37.3; O2SAT 95–98; BMI 29.2
--- NOTE | 2020-11-12 04:37 | CTR_ITS ---
PROCEDURE INFORMATION: Exam: CT Abdomen And Pelvis With Contrast Exam date and time: 11/12/2020 4:37 AM Age: 30 years old Clinical indication: Abdominal pain; Prior surgery; Surgery type: Gb; Additional info: Abd pain TECHNIQUE: Imaging protocol: Computed tomography of the abdomen and pelvis with contrast. Radiation optimization: All CT scans at this facility use at least one of these dose optimization techniques: automated exposure control; mA and/or kV adjustment per patient size (includes targeted exams where dose is matched to clinical indication); or iterative reconstruction. Contrast material: OMNI 300; Contrast volume: 95 ml; Contrast route: INTRAVENOUS (IV); COMPARISON: CT abdomen pelvis w con* [id number] 09/17/2019 8:21 PM RADIATION DOSE METRICS: Total DLP (mGy-cm): 1326.06 FINDINGS: Pleural spaces: No acute airspace or pleural disease. Liver: No focal hepatic mass. Gallbladder and bile ducts: Status post cholecystectomy. Pancreas: No pancreatic mass or ductal dilatation. Spleen: Spleen upper limits of normal size. Adrenal glands: Unremarkable adrenals. Kidneys and ureters: Normal renal morphology. No hydronephrosis. Stomach and bowel: Small-bowel dilatation in a pattern of partial small bowel obstruction. Additional jejunal wall thickening, consistent with enteritis in the appropriate clinical setting. Diverticula, without pericolonic inflammation. Appendix: No acute appendicitis. Intraperitoneal space: No significant free fluid. Vasculature: Normal caliber of the abdominal aorta. Lymph nodes: Subcentimeter lymph nodes. Urinary bladder: Normal bladder morphology. Reproductive: Involuted 1.4 cm left ovarian cyst. Bones/joints: Schmorl's nodes and marginal osteophytes. Soft tissues: Small fat containing umbilical hernia. CT/CT abdomen pelvis w con* [id number] IMPRESSION: 1. Small-bowel dilatation in a pattern of partial small bowel obstruction. 2. Jejunal wall thickening, consistent with enteritis in the appropriate clinical setting. 3. Additional findings as described above. Radiation Dose CTDIVOL = (mGy): DLP = 1326.06 (mGy-cm)
--- NOTE | 2020-11-12 04:38 | W.ED.ABDPA2 ---
Documented by User: Siddharth Ornelas MD 11/12/20 05:39 HPI - Abdominal Pain General: Chief Complaint: Abdominal Pain Stated Complaint: Stomach Cramps\Spasms Time Seen by Provider: 11/12/20 04:31 Source: patient Mode of arrival: ambulatory Limitations: no limitations History of Present Illness: HPI narrative: 30-year-old female states that over the last week she has been having epigastric abdominal pains been cramping and severe in nature. States that waxes and wanes. States she had a some increased burping as well. She denies any fevers denies diarrhea. States she is felt nauseous no vomiting. States the pain was severe tonight and rated an 8 out of 10 at its worst is currently a 4 out of 10. She states she has had a history of reflux in the past but after having her gallbladder out she has had less and has not taking any antacids currently. MD elicited complaint: abdominal pain Associated Symptoms: Reports nausea; Denies chills, dysuria and fever(s) Related Data: Date of Last Menstrual Period: 08/20/19 Review of Systems Const: Denies: fever(s), chills, body aches or change in appetite Eyes: Denies: blurry vision or eye discomfort ENMT: Denies: throat pain or dental pain Card: Denies: chest pain Resp: Denies: dyspnea GI: Reports: abdominal pain and nausea : Denies: dysuria Musc: Denies: neck pain or back pain Skin/Breast: Denies: rash Neuro: Denies: headache(s) Psych: Denies: depression Frandy/Lymph: Denies: easy bruising All/Imm: Denies: urticaria PFSH ED PFSH: Medical History (Updated 11/12/20 @ 09:28 by Melvin Rendon DO) ADD (attention deficit disorder) ADHD Gastro-esophageal reflux History of IBS Surgical History S/P cholecystectomy Social History (Updated 03/29/20 @ 14:48 by Shilpa Oconnell LPN) Smoking and tobacco status: current every day smoker Current gender identity: Female Female Reproductive History: Date of last menstrual period: 08/20/19 Physical Exam Const: COMMON NORMALS: no acute distress, patient oriented x3 and healthy appearing HENMT: COMMON NORMALS: normocephalic and atraumatic HEAD & SCALP: normocephalic and atraumatic Eye: COMMON NORMALS: Equal, round and reactive pupils present and EOMs intact bilaterally PUPIL: Yes Equal, round and reactive pupils present Neck/C-Spine: COMMON NORMALS: full ROM and supple Chest: COMMONS NORMALS: normal inspection of the chest and normal palpation of entire chest wall Resp: COMMON NORMALS: normal respiratory effort, No retractions, No use of accessory muscles and clear to auscultation bilaterally AUSCULTATION: clear to auscultation bilaterally Cardio: COMMON NORMALS: regular rate, regular rhythm and No murmurs present (Cardio) RATE: regular rate RHYTHM: regular rhythm GI: COMMON NORMALS: Normal to inspection, nondistended, normoactive bowel sounds present, Soft to palpation, non-tender and no masses PALPATION: Yes Soft to palpation Extremity: COMMON NORMALS: normal to inspection and full ROM Neuro: COMMON NORMALS: patient oriented x3, moves all extremities and no focal motor deficits Psych: COMMON NORMALS: mental status grossly normal, Normal thought process present and cooperative THOUGHT PROCESS: Normal thought process present Skin: COMMON NORMALS: no rashes or lesions noted and no wounds GENERAL SKIN EXAM: no rashes or lesions noted Course Vital Signs: Vital signs: Vital Signs Temperature 98.1 F 11/12/20 04:35 Pulse Rate 76 11/12/20 08:00 Respiratory Rate 15 11/12/20 08:00 Blood Pressure 131/100 11/12/20 08:00 Pulse Oximetry 98 11/12/20 08:00 MDM - Abdominal Pain Lab Data: Labs: Lab Results 11/12/20 11/12/20 11/12/20 Range/Units 05:19 05:19 05:19 WBC 9.0 (4.0-10.0) 10^3/ uL RBC 4.73 (4.1-5.3) 10^6/u L Hgb 13.8 (11.5-15.3) g/dL Hct 42.8 (37.0-47.0) % MCV 90.5 (81-99) fL MCH 29.2 (28.0-34.0) pg MCHC 32.2 (30.0-36.0) g/dL RDW 12.3 (12.1-15.1) % Plt Count 281 (130-400) 10^3/c mm MPV 9.4 (7.4-10.4) fL Neut % (Auto) 71.4 % Lymph % (Auto) 18.7 % [place] % (Auto) 6.6 % Eos % (Auto) 2.6 % Baso % (Auto) 0.4 % Neut # (Auto) 6.43 (1.8-7.7) 10^3/u L Lymph # (Auto) 1.7 (0.8-4.8) 10^3/u L [place] # (Auto) 0.6 (0.2-0.9) 10^3/u L Eos # (Auto) 0.2 (0.0-0.8) 10^3/u L Baso # (Auto) 0.0 (0.0-0.1) 10^3/u L Nucleated RBC % (a uto) 0 % Nucleated RBCs # 0.0 /100WBC Sodium 139 (136-145) mmol/L Potassium 3.8 (3.5-5.1) mmol/L Chloride 105 (98-107) mmol/L Carbon Dioxide 24 (22-29) mmol/L Anion Gap 13.8 (5-19) BUN 11 (6-20) mg/dL Creatinine 0.8 (0.5-0.9) mg/dL GFR Calculation 84.8 L (90-130) mL/min Glucose 99 (65-115) mg/dL Calculated Osmolal ity 287 (285-295) mOsm/k g Calcium 8.8 (8.5-10.5) mg/dL Total Bilirubin 0.6 (0.15-1.2) mg/dL AST 11 (0-32) U/L ALT 14 (0-33) U/L Alkaline Phosphata se 79 (35-105) IU/L Total Protein 6.9 (6.6-8.7) g/dL Albumin 4.4 (3.5-5.2) g/dL Globulin 2.5 (1.3-4.6) g/dL Lipase 22 (13-60) U/L HCG, Qual Negative (Negative) Urine Color (Yellow) Urine Appearance (CLEAR) Urine pH (5-7) Ur Specific Gravit y (1.005-1.030) Urine Protein (Negative) Urine Glucose (UA) (Normal) Urine Ketones (Negative) Urine Blood (Negative) Urine Nitrate (Negative) Urine Bilirubin (Negative) Urine Urobilinogen (Negative) mg/dL Ur Leukocyte Briana ase (Negative) 11/12/20 Range/Units 05:57 WBC (4.0-10.0) 10^3/ uL RBC (4.1-5.3) 10^6/u L Hgb (11.5-15.3) g/dL Hct (37.0-47.0) % MCV (81-99) fL MCH (28.0-34.0) pg MCHC (30.0-36.0) g/dL RDW (12.1-15.1) % Plt Count (130-400) 10^3/c mm MPV (7.4-10.4) fL Neut % (Auto) % Lymph % (Auto) % [place] % (Auto) % Eos % (Auto) % Baso % (Auto) % Neut # (Auto) (1.8-7.7) 10^3/u L Lymph # (Auto) (0.8-4.8) 10^3/u L [place] # (Auto) (0.2-0.9) 10^3/u L Eos # (Auto) (0.0-0.8) 10^3/u L Baso # (Auto) (0.0-0.1) 10^3/u L Nucleated RBC % (a uto) % Nucleated RBCs # /100WBC Sodium (136-145) mmol/L Potassium (3.5-5.1) mmol/L Chloride (98-107) mmol/L Carbon Dioxide (22-29) mmol/L Anion Gap (5-19) BUN (6-20) mg/dL Creatinine (0.5-0.9) mg/dL GFR Calculation (90-130) mL/min Glucose (65-115) mg/dL Calculated Osmolal ity (285-295) mOsm/k g Calcium (8.5-10.5) mg/dL Total Bilirubin (0.15-1.2) mg/dL AST (0-32) U/L ALT (0-33) U/L Alkaline Phosphata se (35-105) IU/L Total Protein (6.6-8.7) g/dL Albumin (3.5-5.2) g/dL Globulin (1.3-4.6) g/dL Lipase (13-60) U/L HCG, Qual (Negative) Urine Color Straw (Yellow) Urine Appearance Clear (CLEAR) Urine pH 7 (5-7) Ur Specific Gravit y 1.010 (1.005-1.030) Urine Protein Neg (Negative) Urine Glucose (UA) Norm (Normal) Urine Ketones Negative (Negative) Urine Blood Neg (Negative) Urine Nitrate Negative (Negative) Urine Bilirubin Neg (Negative) Urine Urobilinogen Norm (Negative) mg/dL Ur Leukocyte Briana ase Negative (Negative) Discharge Plan Discharge Patient Disposition: Admitted As Inpatient Clinical Impression: Partial obstruction of small intestine Condition: Stable Sign Out Sign Out Data: Patient Sign Out occurred on 11/12/20 at 06:03. Patient's care was discussed, and care was transferred from to Melvin Rendon DO. Coding Level of Care Code ED Supervisor Blood for Chg Fwd Exam Comprehensive Documented by User: Melvin Rendon DO 11/12/20 11:17 HPI - Abdominal Pain General: Chief Complaint: Abdominal Pain Stated Complaint: Stomach Cramps\Spasms Time Seen by Provider: 11/12/20 04:31 [facility] ED PFSH: Medical History (Updated 11/12/20 @ 09:28 by Melvin Rendon DO) ADD (attention deficit disorder) ADHD Gastro-esophageal reflux History of IBS Surgical History S/P cholecystectomy Social History (Updated 03/29/20 @ 14:48 by Shilpa Oconnell LPN) Smoking and tobacco status: current every day smoker Current gender identity: Female Course Vital Signs: Vital signs: Vital Signs Temperature 98.1 F 11/12/20 04:35 Pulse Rate 76 11/12/20 08:00 Respiratory Rate 15 11/12/20 08:00 Blood Pressure 131/100 11/12/20 08:00 Pulse Oximetry 98 11/12/20 08:00 MDM - Abdominal Pain MDM Narrative: Medical decision making narrative: Care assumed a change of shift. Patient having evidence of partial small bowel obstruction on CT with persistent nausea and vomiting. Will place her in observation IV fluids antiemetics GI rest. Will discuss with Dr. Jung. Lab Data: Labs: Lab Results 11/12/20 11/12/20 11/12/20 Range/Units 05:19 05:19 05:19 WBC 9.0 (4.0-10.0) 10^3/ uL RBC 4.73 (4.1-5.3) 10^6/u L Hgb 13.8 (11.5-15.3) g/dL Hct 42.8 (37.0-47.0) % MCV 90.5 (81-99) fL MCH 29.2 (28.0-34.0) pg MCHC 32.2 (30.0-36.0) g/dL RDW 12.3 (12.1-15.1) % Plt Count 281 (130-400) 10^3/c mm MPV 9.4 (7.4-10.4) fL Neut % (Auto) 71.4 % Lymph % (Auto) 18.7 % [place] % (Auto) 6.6 % Eos % (Auto) 2.6 % Baso % (Auto) 0.4 % Neut # (Auto) 6.43 (1.8-7.7) 10^3/u L Lymph # (Auto) 1.7 (0.8-4.8) 10^3/u L [place] # (Auto) 0.6 (0.2-0.9) 10^3/u L Eos # (Auto) 0.2 (0.0-0.8) 10^3/u L Baso # (Auto) 0.0 (0.0-0.1) 10^3/u L Nucleated RBC % (a uto) 0 % Nucleated RBCs # 0.0 /100WBC Sodium 139 (136-145) mmol/L Potassium 3.8 (3.5-5.1) mmol/L Chloride 105 (98-107) mmol/L Carbon Dioxide 24 (22-29) mmol/L Anion Gap 13.8 (5-19) BUN 11 (6-20) mg/dL Creatinine 0.8 (0.5-0.9) mg/dL GFR Calculation 84.8 L (90-130) mL/min Glucose 99 (65-115) mg/dL Calculated Osmolal ity 287 (285-295) mOsm/k g Calcium 8.8 (8.5-10.5) mg/dL Total Bilirubin 0.6 (0.15-1.2) mg/dL AST 11 (0-32) U/L ALT 14 (0-33) U/L Alkaline Phosphata se 79 (35-105) IU/L Total Protein 6.9 (6.6-8.7) g/dL Albumin 4.4 (3.5-5.2) g/dL Globulin 2.5 (1.3-4.6) g/dL Lipase 22 (13-60) U/L HCG, Qual Negative (Negative) Urine Color (Yellow) Urine Appearance (CLEAR) Urine pH (5-7) Ur Specific Gravit y (1.005-1.030) Urine Protein (Negative) Urine Glucose (UA) (Normal) Urine Ketones (Negative) Urine Blood (Negative) Urine Nitrate (Negative) Urine Bilirubin (Negative) Urine Urobilinogen (Negative) mg/dL Ur Leukocyte Briana ase (Negative) 11/12/20 Range/Units 05:57 WBC (4.0-10.0) 10^3/ uL RBC (4.1-5.3) 10^6/u L Hgb (11.5-15.3) g/dL Hct (37.0-47.0) % MCV (81-99) fL MCH (28.0-34.0) pg MCHC (30.0-36.0) g/dL RDW (12.1-15.1) % Plt Count (130-400) 10^3/c mm MPV (7.4-10.4) fL Neut % (Auto) % Lymph % (Auto) % [place] % (Auto) % Eos % (Auto) % Baso % (Auto) % Neut # (Auto) (1.8-7.7) 10^3/u L Lymph # (Auto) (0.8-4.8) 10^3/u L [place] # (Auto) (0.2-0.9) 10^3/u L Eos # (Auto) (0.0-0.8) 10^3/u L Baso # (Auto) (0.0-0.1) 10^3/u L Nucleated RBC % (a uto) % Nucleated RBCs # /100WBC Sodium (136-145) mmol/L Potassium (3.5-5.1) mmol/L Chloride (98-107) mmol/L Carbon Dioxide (22-29) mmol/L Anion Gap (5-19) BUN (6-20) mg/dL Creatinine (0.5-0.9) mg/dL GFR Calculation (90-130) mL/min Glucose (65-115) mg/dL Calculated Osmolal ity (285-295) mOsm/k g Calcium (8.5-10.5) mg/dL Total Bilirubin (0.15-1.2) mg/dL AST (0-32) U/L ALT (0-33) U/L Alkaline Phosphata se (35-105) IU/L Total Protein (6.6-8.7) g/dL Albumin (3.5-5.2) g/dL Globulin (1.3-4.6) g/dL Lipase (13-60) U/L HCG, Qual (Negative) Urine Color Straw (Yellow) Urine Appearance Clear (CLEAR) Urine pH 7 (5-7) Ur Specific Gravit y 1.010 (1.005-1.030) Urine Protein Neg (Negative) Urine Glucose (UA) Norm (Normal) Urine Ketones Negative (Negative) Urine Blood Neg (Negative) Urine Nitrate Negative (Negative) Urine Bilirubin Neg (Negative) Urine Urobilinogen Norm (Negative) mg/dL Ur Leukocyte Briana ase Negative (Negative) Discharge Plan Discharge Patient Disposition: Admitted As Inpatient Clinical Impression: Partial obstruction of small intestine Condition: Stable Sign Out Sign Out Data: Patient Sign Out occurred on 11/12/20 at 06:03. Patient's care was discussed, and care was transferred from to Melvin Rendon DO. Coding Level of Care Code ED Supervisor Blood for [facility] Fwd Exam Comprehensive
[2020-11-12] MEDS: morphine 4 mg/mL SDV 1 mL IVP (05:16)
[2020-11-12] MEDS: ondansetron 2 mg/ML SDV 2 mL 4 MG IVP ×3 (05:18→19:50)
[2020-11-12] MEDS: sodium chloride 0.9% 1,000 ML 999 ML IV (05:18)
[2020-11-12 05:27] LABS: Basophils % 0.4 %; Eosinophils # 0.2 10^3/uL (0.0-0.8); Eosinophils % 2.6 %; Hematocrit 42.8 % (37.0-47.0); Hemoglobin 13.8 g/dL (11.5-15.3); Lymphocytes # 1.7 10^3/uL (0.8-4.8); Lymphocytes % 18.7 %; Mean Corpuscular HGB Conc 32.2 g/dL (30.0-36.0); Mean Corpuscular Hemoglobin 29.2 pg (28.0-34.0); Mean Corpuscular Volume 90.5 fL (81-99); Mean Platelet Volume 9.4 fL (7.4-10.4); Monocytes # 0.6 10^3/uL (0.2-0.9); Monocytes % 6.6 %; Neutrophils # 6.43 10^3/uL (1.8-7.7); Neutrophils % 71.4 %; Nucleated Red Blood Cells % 0 %; Platelet Count 281 10^3/cmm (130-400); Red Blood Count 4.73 10^6/uL (4.1-5.3); Red Cell Distribution Width 12.3 % (12.1-15.1)
[2020-11-12 05:39] LABS: HCG, Serum Qual Negative (Negative)
[2020-11-12 05:43] LABS: Alanine Aminotransferase 14 U/L (0-33); Albumin Level 4.4 g/dL (3.5-5.2); Alkaline Phosphatase 79 IU/L (35-105); Anion Gap 13.8 (5-19); Aspartate Amino Transferase 11 U/L (0-32); Blood Urea Nitrogen 11 mg/dL (6-20); Calcium 8.8 mg/dL (8.5-10.5); Carbon Dioxide 24 mmol/L (22-29); Chloride 105 mmol/L (98-107); Globulin 2.5 g/dL (1.3-4.6); Glomerular Filtration Rate 84.8 mL/min (90-130); Glucose 99 mg/dL (65-115); Lipase 22 U/L (13-60); Osmolality Calculated 287 mOsm/kg (285-295); Potassium 3.8 mmol/L (3.5-5.1); Sodium 139 mmol/L (136-145); Total Bilirubin 0.6 mg/dL (0.15-1.2); Total Protein 6.9 g/dL (6.6-8.7)
[2020-11-12] MEDS: promethazine 25 mg/mL SDV 1 mL IM ×2 (06:06→13:35)
[2020-11-12 06:07] LABS: Add Urine Microscopic? NO; Charge for UA Resulting for Rev
[2020-11-12 06:17] LABS: Bilirubin Urine Neg (Negative); Blood Urine Neg (Negative); Glucose Urine UA Norm (Normal); Ketones Urine Negative (Negative); Leukocyte Esterase Urine Negative (Negative); Nitrate Urine Negative (Negative); Protein Urine Neg (Negative); Urine Appearance Clear (CLEAR); Urine Color Straw (Yellow); Urobilinogen Urine Norm (Negative); pH Urine 7 (5-7)
[2020-11-12] MEDS: iohexol 300 mg/mL 100 mL Btl IV (06:28)
[2020-11-12] MEDS: sodium chlor 0.9% + KCl 20 mEq 20 MEQ/1,000 ML BAG 150 MEQ IV (12:48)
--- NOTE | 2020-11-12 17:48 | P.HP_ITS ---
Providers/Chief Complaint Chief Complaint: Stomach Cramps\Spasms History of Present Illness Pepito Ovalle is a 30 year old female who states that she has been having cramping abdominal pain for the last 3 weeks associated with nausea and multiple episodes of vomiting a day. She usually has 2 loose bowel movements a day. She noticed that the stools are dark but denies any hematemesis or hematochezia. No similar episodes in the past. She has a history of IBS. No prior admissions for bowel obstruction. Her only abdominal surgery has been a cholecystectomy. Review of Systems General: Reports: 10 or more systems reviewed and unremarkable except in HPI and below Medications/Allergies Home Medications Medication Instructions Recorded Confirmed Last Taken Type dextroamphetamine-amphetamine 20 20 mg PO QAM 30 Days #30 tab 08/27/20 11/12/20 11/11/20 Rx mg tablet Allergies Allergy/AdvReac Type Severity Reaction Status Date / Time bupropion [From Wellbutrin] Allergy angry Verified 08/05/20 14:23 duloxetine [From Cymbalta] Allergy nausea Verified 08/05/20 14:23 PFSH Acute PFSH: Medical History ADD (attention deficit disorder) ADHD Gastro-esophageal reflux History of IBS Surgical History S/P cholecystectomy Social History Smoking and tobacco status: current every day smoker Current gender identity: Female Female Reproductive History: Date of last menstrual period: 08/20/19 Vitals/I&O/Wt Last Vital Signs Temp 98.1 F 11/12/20 04:35 Pulse 70 11/12/20 12:00 Resp 15 11/12/20 12:00 BP 117/66 11/12/20 12:00 Pulse Ox 96 11/12/20 12:00 11/12/20 11/12/20 11/12/20 06:59 14:59 22:59 Intake Total 1000 / 1000 Balance 1000 / 1000 Weight last 48 hrs Weight 165 lb Physical Exam Narrative: EXAM NARRATIVE: HEENT: Normocephalic Eye: Sclera /conjunctiva normal Abdomen: Soft to palpation, minimally tender, nondistended Neurological: Oriented to place person and time Skin: Intact, no lesions appreciated on gross exam Data : 11/12/20 05:19 11/12/20 05:19 A&P Assessment and plan (1) Enteritis: 30-year-old female who presents with abdominal pain, nausea, vomiting, diarrhea of 3 weeks duration. Patient also had some dark stools but denies any hematemesis or hematochezia. Patient is hemodynamically stable with no evidence of peritonitis. CT abdomen pelvis showed findings suggestive of partial bowel obstruction but also jejunal wall thickening. Based on the history I suspect she more likely has enteritis rather than partial bowel obstruction Admit as inpatient IV fluids @ 100 cc/hr Pepcid for GI prophylaxis Daily labs Cipro 400 mg IV twice daily and Flagyl 500 mg IV 3 times daily Ambulate ad gayle. 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
[2020-11-12] MEDS: ciprofloxacin 400 MG/200 ML PREMIX 200 MG IV (19:45)
[2020-11-12] MEDS: D5-NS 0.45% + KCL 20 mEq 20 MEQ/1,000 ML BAG 100 MEQ IV (19:45)
[2020-11-12] MEDS: famotidine 20 mg/2 mL INJ IVP (19:48)
[2020-11-12] MEDS: morphine 4 mg/mL SDV 1 mL 2 MG IVP (20:02)
[2020-11-12] MEDS: metroNIDAZOLE IV 500 MG/100 ML PREMIX 100 MG IV (21:17)
[2020-11-13] VITALS: BP 100/65; PULSE 83; RESP 18; TEMP 37.2; O2SAT 98
[2020-11-13] MEDS: metroNIDAZOLE IV 500 MG/100 ML PREMIX 100 MG IV ×3 (04:52→22:39)
[2020-11-13] MEDS: D5-NS 0.45% + KCL 20 mEq 20 MEQ/1,000 ML BAG 100 MEQ IV ×2 (04:52→22:40)
[2020-11-13 06:04] LABS: Basophils % 0.4 %; Eosinophils # 0.4 10^3/uL (0.0-0.8); Hematocrit 38.9 % (37.0-47.0); Hemoglobin 12.5 g/dL (11.5-15.3); Lymphocytes # 1.5 10^3/uL (0.8-4.8); Lymphocytes % 28.8 %; Mean Corpuscular HGB Conc 32.1 g/dL (30.0-36.0); Mean Corpuscular Hemoglobin 28.8 pg (28.0-34.0); Mean Corpuscular Volume 89.6 fL (81-99); Mean Platelet Volume 9.1 fL (7.4-10.4); Monocytes # 0.4 10^3/uL (0.2-0.9); Monocytes % 6.8 %; Neutrophils % 56.8 %; Nucleated Red Blood Cells % 0 %; Platelet Count 240 10^3/cmm (130-400); Red Blood Count 4.34 10^6/uL (4.1-5.3); Red Cell Distribution Width 12.3 % (12.1-15.1); White Blood Count 5.3 10^3/uL (4.0-10.0)
[2020-11-13 06:24] LABS: Anion Gap 12.8 (5-19); Blood Urea Nitrogen 6 mg/dL (6-20); Carbon Dioxide 24 mmol/L (22-29); Chloride 105 mmol/L (98-107); Glomerular Filtration Rate 98.9 mL/min (90-130); Glucose 95 mg/dL (65-115); Osmolality Calculated 283 mOsm/kg (285-295); Potassium 3.8 mmol/L (3.5-5.1); Sodium 138 mmol/L (136-145)
[2020-11-13] MEDS: ciprofloxacin 400 MG/200 ML PREMIX 200 MG IV ×2 (08:16→20:52)
[2020-11-13] MEDS: famotidine 20 mg/2 mL INJ IVP ×2 (08:16→20:52)
[2020-11-13] MEDS: ondansetron 2 mg/ML SDV 2 mL 4 MG IVP ×2 (08:23→18:04)
[2020-11-13 12:00] VITALS: BP 108/71; PULSE 66; RESP 17; TEMP 37.2; O2SAT 97
--- NOTE | 2020-11-13 12:10 | XRR_ITS ---
PROCEDURE INFORMATION: Exam: XR Abdomen Exam date and time: 11/13/2020 12:10 PM Age: 30 years old Clinical indication: Abdominal pain; Additional info: Sbo TECHNIQUE: Imaging protocol: XR of the abdomen. Views: 2 Views. Upright and supine views. COMPARISON: CT abdomen pelvis w con* [id number] 11/12/2020 6:24 AM FINDINGS: Gastrointestinal tract: Mildly prominent bowel loops measuring up to 2.3 cm in transverse dimension. Trace air-fluid levels noted within the mid/left hemiabdomen. Air seen within the distal rectum. Intraperitoneal space: Normal. No free air. Bones/joints: Unremarkable for age. XR/XR abdomen min 2V [id number] IMPRESSION: Mildly prominent small bowel loops within the mid/left hemiabdomen with some air-fluid levels, similar to recent CT imaging.
[2020-11-13 12:26] VITALS: RESP 14; O2SAT 97
[2020-11-13] MEDS: morphine 4 mg/mL SDV 1 mL 2 MG IVP ×2 (12:26→20:58)
--- NOTE | 2020-11-13 13:48 | PM.PN ---
Subjective Subjective: Interval history: There were some confusion when she gave her history yesterday. Apparently she used to have bowel movements twice a day which are loose but she has not had more than 3-4 bowel movements in the last 5 to 6 days Vitals/I&O/Wt Last Vital Signs Temp 98.9 F 11/13/20 12:00 Pulse 66 11/13/20 12:00 Resp 14 11/13/20 12:26 BP 108/71 11/13/20 12:00 Pulse Ox 97 11/13/20 12:26 11/12/20 11/13/20 11/13/20 22:59 06:59 14:59 Intake Total 1300 / 3371.667 1071.667 / 3371.667 300 / 300 Output Total 0 / 400 400 / 400 Balance 1300 / 2971.667 671.667 / 2971.667 300 / 300 Weight last 48 hrs Weight 165 lb Physical Exam Narrative: EXAM NARRATIVE: Abdomen: Soft, minimally tender, nondistended Data : 11/13/20 05:55 11/13/20 05:55 A&P Assessment and plan (1) Enteritis: We will continue with oral Cipro and Flagyl, WBC is down to 5.3 Status: Acute (2) Partial obstruction of small intestine: Abdominal x-ray today shows stool and air within the colon, will try enemas. I have told the patient that she will need to stay on bowel rest until her abdominal pain has resolved and therefore we will continue with n.p.o. and ice chips for now Pepcid for GI prophylaxis Ambulate ad gayle. IV fluids Daily labs Status: Acute Attestations Medical Necessity Statement*: Patient has suspected partial bowel obstruction and or enteritis. She will need continued inpatient stay to ensure resolution of symptoms. 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
[2020-11-13] MEDS: magnesium citrate Btl 296 mL PO ×2 (15:22→18:25)
[2020-11-13 15:25] VITALS: BP 109/72; PULSE 65; RESP 18; TEMP 37.2; O2SAT 97
[2020-11-13 19:56] VITALS: BP 108/73; PULSE 72; RESP 18; TEMP 36.6; O2SAT 99
[2020-11-13 20:58] VITALS: RESP 16
[2020-11-13] MEDS: promethazine 25 mg/mL SDV 1 mL 12.5 MG IM (21:52)
[2020-11-14] VITALS: BP 109/72; PULSE 64; RESP 18; TEMP 36.9; O2SAT 97
[2020-11-14 04:00] VITALS: BP 108/70; PULSE 52; RESP 18; TEMP 36.9; O2SAT 97
[2020-11-14 06:03] LABS: Basophils % 0.2 %; Eosinophils # 0.4 10^3/uL (0.0-0.8); Eosinophils % 6.6 %; Hematocrit 39.5 % (37.0-47.0); Hemoglobin 12.7 g/dL (11.5-15.3); Lymphocytes # 1.8 10^3/uL (0.8-4.8); Lymphocytes % 33.2 %; Mean Corpuscular HGB Conc 32.2 g/dL (30.0-36.0); Mean Corpuscular Hemoglobin 29.2 pg (28.0-34.0); Mean Corpuscular Volume 90.8 fL (81-99); Mean Platelet Volume 9.5 fL (7.4-10.4); Monocytes # 0.3 10^3/uL (0.2-0.9); Monocytes % 6.4 %; Neutrophils # 2.83 10^3/uL (1.8-7.7); Neutrophils % 53.4 %; Nucleated Red Blood Cells % 0 %; Platelet Count 260 10^3/cmm (130-400); Red Blood Count 4.35 10^6/uL (4.1-5.3); Red Cell Distribution Width 12.3 % (12.1-15.1); White Blood Count 5.3 10^3/uL (4.0-10.0)
[2020-11-14] MEDS: metroNIDAZOLE IV 500 MG/100 ML PREMIX 100 MG IV (06:19)
[2020-11-14 06:42] LABS: Anion Gap 9.6 (5-19); Blood Urea Nitrogen 5 mg/dL (6-20); Calcium 8.1 mg/dL (8.5-10.5); Carbon Dioxide 26 mmol/L (22-29); Chloride 105 mmol/L (98-107); Glomerular Filtration Rate 84.8 mL/min (90-130); Glucose 85 mg/dL (65-115); Osmolality Calculated 281 mOsm/kg (285-295); Potassium 3.6 mmol/L (3.5-5.1); Sodium 137 mmol/L (136-145)
[2020-11-14 08:00] VITALS: BP 113/78; PULSE 66; RESP 14; TEMP 37; O2SAT 97
--- NOTE | 2020-11-14 09:40 | P.PN_ITS ---
Subjective Subjective: Interval history: Patient had multiple bowel movements yesterday, abdominal pain is better, no nausea or vomiting Vitals/I&O/Wt Last Vital Signs Temp 98.6 F 11/14/20 08:00 Pulse 66 11/14/20 08:00 Resp 14 11/14/20 08:00 BP 113/78 11/14/20 08:00 Pulse Ox 97 11/14/20 08:00 11/13/20 11/14/20 11/14/20 22:59 06:59 14:59 Intake Total 1200 / 1720 220 / 1720 Balance 1200 / 1720 220 / 1720 Physical Exam Narrative: EXAM NARRATIVE: Abdomen: Soft, nontender, nondistended Data : 11/14/20 05:57 11/14/20 05:57 Micro: Microbiology 11/13/20 20:32 Stool Lactoferrin - Final Stool C.difficile Toxin B Gene (PCR) - Final Occult Blood (FIT) - Final A&P Assessment and plan (1) Enteritis: We will continue with Cipro and Flagyl, WBC is down to 5.3 Status: Acute (2) Partial obstruction of small intestine: Patient had multiple bowel movements yesterday, start full liquid diet today. 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
--- NOTE | 2020-11-14 09:47 | P.DS_ITS ---
Discharge Providers Date of Admission: 11/12/20 11:14 Date of Discharge: November 14, 2020 Attending Provider at Admission: Jabari Jung MD Attending Provider at Discharge: Jabari Jung MD Diagnoses at Discharge Discharge Diagnosis (1) Enteritis: Status: Resolved (2) Partial obstruction of small intestine: Status: Resolved Reason for Visit Reason for Visit: Stomach Cramps\Spasms Hospital Course Hospital Course Pepito Ovalle is a 30 year old female who states that she has been having cramping abdominal pain for the last 3 weeks associated with nausea and multiple episodes of vomiting a day. She usually has 2 loose bowel movements a day. She states that she has had couple bowel movements in the last 5 days. She noticed that the stools are dark but denies any hematemesis or hematochezia. No similar episodes in the past. She has a history of IBS. No prior admissions for bowel obstruction. Her only abdominal surgery has been a cholecystectomy. CT abdomen pelvis had shown possible enteritis/bowel obstruction. She is therefore treated empirically with oral IV Cipro and Flagyl. C. difficile was negative, the stool cultures are pending. She was given 2 bottle magnesium citrate and she started having bowel movements. By following day her vital s igns are stable, her abdominal pain was better and she was tolerating a full liquid diet. She will be discharged home on oral antibiotics and laxatives. Discharge Data Data Completed and Pending: Completed Studies During Hospitalization Category Date Time Status CT abdomen pelvis w con* [id number] Urge nt Cat Scan 11/12/20 04:37 Completed XR abdomen min 2V [id number] Routine Exams 11/13/20 12:10 Completed Pending at discharge Category Date Time Status Basic Metabolic P la AM LABS Lab 11/15/20 04:00 Ordered Clostridioides Di fficile PCR Routin e Lab 11/12/20 18:03 Results Complete Blood Co unt w/Auto AM LABS Lab 11/15/20 04:00 Ordered Enteric Bacterial Panel by PCR Rout ine Lab 11/12/20 18:03 Results Enteric Parasite Panel by PCR Selvini ne Lab 11/12/20 18:03 Results Immunochemical Fe winston OCB Routine Lab 11/12/20 18:03 Results Lactoferrin Routi ne Lab 11/12/20 18:03 Results Labs from last 24 hours 11/14/20 11/14/20 05:57 05:57 WBC 5.3 RBC 4.35 Hgb 12.7 Hct 39.5 MCV 90.8 MCH 29.2 MCHC 32.2 RDW 12.3 Plt Count 260 MPV 9.5 Neut % (Auto) 53.4 Lymph % (Auto) 33.2 [place] % (Auto) 6.4 Eos % (Auto) 6.6 Baso % (Auto) 0.2 Neut # (Auto) 2.83 Lymph # (Auto) 1.8 [place] # (Auto) 0.3 Eos # (Auto) 0.4 Baso # (Auto) 0.0 Nucleated RBC % (a uto) 0 Nucleated RBCs # 0.0 Sodium 137 Potassium 3.6 Chloride 105 Carbon Dioxide 26 Anion Gap 9.6 BUN 5 L Creatinine 0.8 GFR Calculation 84.8 L Glucose 85 Calculated Osmolal ity 281 L Calcium 8.1 L Vitals: Last Vital Signs Temp 98.6 F 11/14/20 08:00 Pulse 66 11/14/20 08:00 Resp 14 11/14/20 08:00 BP 113/78 11/14/20 08:00 Pulse Ox 97 11/14/20 08:00 Discharge Plan Discharge Patient Disposition: Home Condition: Stable Prescriptions: New lactulose 10 gram/15 mL solution 15 ml PO BID Qty: 237 RF: 2 levofloxacin 500 mg tablet 500 mg PO DAILY 7 Days Qty: 7 RF: 0 metronidazole [Flagyl] 500 mg tablet 500 mg PO Q8H 7 Days Qty: 21 RF: 0 Continued dextroamphetamine-amphetamine [Adderall] 20 mg tablet 20 mg PO QAM 30 Days Qty: 30 RF: 0 Discharge Orders: Discharge Order (Routine); Ordered 11/14/20 Ordered By: Jabari Jung Referrals: Jabari Jung MD [Physician] - 1 month Discharge Diet: Advance as tolerated Patient Instructions: Opioid Safety Activity Restrictions/Additional Instructions: Complete course of Levaquin and Flagyl as prescribed for 7 days. Start lactulose 15 cc twice daily but adjust the dose as needed to avoid excessive loose stools or frequency. Ambulate ad gayle. Resume activities as normal Discharge Attestations Time Spent in Discharge Care*: less than 30 min Quality Metrics Clinical Quality Measures During this hospital stay, did patient experience: None Coding Level of Care Code Acute Chg FW MA note Diagnoses Enteritis K52.9 Partial obstruction of small intestine K56.600
[2020-11-14] MEDS: ciprofloxacin 400 MG/200 ML PREMIX 200 MG IV (10:43)
[2020-11-14] MEDS: famotidine 20 mg/2 mL INJ IVP (10:44)
[2020-11-14 11:16] VITALS: BP 104/73; PULSE 71; RESP 16; TEMP 37.1; O2SAT 97
[2020-11-14] MEDS: ondansetron 2 mg/ML SDV 2 mL 4 MG IVP (13:12)
[2020-11-14 14:13] VITALS: BP 104/73; PULSE 71; RESP 16; TEMP 37.1; O2SAT 97
--- NOTE | 2020-11-14 14:14 | NUR.SHIFT ---
PT HAS DONE WELL FOR ME TODAY. NO COMPLAINTS OF PAIN. PT HAS HAD A MILD UPSET STOMACH BUT IS TOLERATING A FULL LIQUID DIET WELL. PT WILL DISCHARGE TODAY PER MD. PT HAS HAD MULTIPLE BOWEL MOVEMENTS TODAY. DISCHARGE PAPERWORK GONE OVER WITH PT. ALL QUESTIONS ANSWERED. MEDICATIONS WERE SENT TO PHARMACY OF PTS CHOICE ([facility]). IV WAS REMOVED. PT TOLERATED WELL. CATHETER TIP INTACT. PT WAS WHEELED OUT BY THIS NURSE AND SAFELY DISCHARGED AT 1417.
--- NOTE | 2020-11-15 08:55 | PC.RESP ---
SMOKING CESSATION INFORMATION SENT TO PATIENT.
== END 2020-11-14 14:14 | disposition home or self-care (01) | DRG 392 ==
LOC: ER 09:28 → MEDSURG 18:15
PROVIDERS: Emergency Medicine; Admitting Provider Surgery; Emergency Provider Family Medicine; Visit Provider Surgery
DX: K52.9 Noninfective gastroenteritis and colitis, unspecified (principal); K56.600 Partial intestinal obstruction, unspecified as to cause; Z90.49 Acquired absence of other specified parts of digestive tract; F90.9 Attention-deficit hyperactivity disorder, unspecified type; K21.9 Gastro-esophageal reflux disease without esophagitis; F17.210 Nicotine dependence, cigarettes, uncomplicated
CPT/HCPCS: 36415; 74019; 74177; 80048; 80053; 81003; 82274; 83630; 83690; 84703; 85025; 87493; 87506; 96365; 96366; 96372; 96375; 96376; 99285; J0744; J2270; J2405; J2550; J3490; J7030; Q9967; S0030

== ENCOUNTER 2021-01-17 11:45 | Emergency (ER) | payer MEDICAID, SELFPAY ==
[2021-01-17 12:58] VITALS: BP 128/94; PULSE 122; RESP 16; TEMP 37.1; O2SAT 100; BMI 29.2
--- NOTE | 2021-01-17 13:14 | CT_ITS ---
WS: [id number] CT ABDOMEN AND PELVIS WITH CONTRAST HISTORY: Bloody stool for 3 days. History of bowel obstruction. TECHNIQUE: Imaging performed of the abdomen and pelvis with IV contrast. Single phase imaging of the abdomen. Coronal and sagittal reformats are submitted. All CT scans at [facility] use at [address] one of these dose optimization techniques: automated exposure control; mA and/or kV adjustment per patient size (includes targeted exams where dose is matched to clinical indication); or iterative re construction. IV CONTRAST: Omnipaque 300; 95 mL IV. Oral contrast: No DLP: 1197.59 mGy.cm COMPARISON: 11/12/2020 and 09/17/2019 Lower thorax: Lung bases are clear. Heart is normal size. No hiatal hernia. Liver/biliary system: Normal size with no intrahepatic dilatation. Gallbladder: Status post cholecystectomy. Pancreas: Normal size pancreas and pancreatic duct. No adjacent inflammation. Spleen: Normal size spleen. No mass or infarct. Adrenal glands: Normal. Right kidney: Normal. Left kidney: Parapelvic cyst in the mid kidney. No interval change. Aorta: Normal. Lymphadenopathy: None. Free fluid: None. GI tract: The appendix is not identified. No inflammatory changes in the RIGHT lower quadrant. There is mild diffuse fecal retention, greatest in the RIGHT colon. No GI tract obstruction. There is mild narrowing of the transverse colon which may be due to an area of peristalsis. Normal caliber on the p rior study of 11/12/2020. Abdominal wall: Unremarkable abdominal wall. No hernia. Pelvis: Retroverted uterus is normal size. Small follicles in the RIGHT ovary. Air present within the cervical canal is probably a tampon. Bones: Unremarkable. CT/CT abdomen pelvis w con* [id number] IMPRESSION: 1. No acute abdominal or pelvic abnormalities. 2. No GI tract obstruction or ischemic changes. 3. Appendix not identified but there are no secondary findings of appendicitis . 4. Very mild narrowing of the mid transverse colon. Transverse colon was monisha l on a CT from 11/12/2020. This is probably an area of peristalsis and nondistent ion. If rectal bleeding continues consider colonoscopy for further evaluation.
--- NOTE | 2021-01-17 13:22 | ED_ITS ---
HPI - General Adult General: Chief complaint: GI Bleed Stated complaint: Blood In Stool Time Seen by Provider: 01/17/21 13:04 History of Present Illness: HPI narrative: 31-year-old female presents to the emergency room with hematochezia. She has felt faint and dizzy the last couple of days last 3 days she has had bright red blood in her stools. She is not had any vomiting but has been very nauseous. She denies any fever sweats or chills she has had irritable bowel-like symptoms in the past and had a colonoscopy they did biopsies there was no significant findings. She also a partial bowel obstruction earlier this year. She is not had any vomiting. Onset (ago): day(s) Location: abdomen Severity: mild Pain Consistency: constant Relieving factors: none Exacerbating factors: none Associated symptoms: Deny chest pain, confusion, cough, diaphoresis, decreased appetite, dyspnea, fevers/chills, headache(s), malaise, nausea, rash, palpitations, seizures, short of breath, syncope, vomiting or weakness Treatments prior to arrival: none Review of Systems Const: Denies: malaise or diaphoresis ENMT: Denies: throat pain, ear or mastoid pain, nasal discharge or nasal congestion Card: Denies: chest pain, palpitations or syncope Resp: Denies: dyspnea GI: Denies: nausea or vomiting : Denies: flank pain, difficulty voiding, dysuria, urinary frequency or urinary urgency Skin/Breast: Denies: rash Neuro: Denies: headache(s) or confusion PFS ED PFSH: Medical History ADD (attention deficit disorder) ADHD Gastro-esophageal reflux History of IBS Surgical History History of colonoscopy History of esophagogastroduodenoscopy (EGD) S/P cholecystectomy Family History Denies family history of Anesthesia complication Bleeding disorder Social History Current gender identity: Female Female Reproductive History: Date of last menstrual period: 10/13/20 Physical Exam Const: COMMON NORMALS: no acute distress GENERAL APPEARANCE: cooperative and comfortable ORIENTATION/CONSCIOUSNESS: Yes awake, Yes oriented to person, Yes oriented to place and Yes oriented to time HENMT: COMMON NORMALS: normocephalic, atraumatic and hearing grossly normal bilaterally HEAD & SCALP: normocephalic and atraumatic Neck/C-Spine: COMMON NORMALS: no JVD Resp: COMMON NORMALS: normal respiratory effort, No retractions, No use of accessory muscles and clear to auscultation bilaterally AUSCULTATION: clear to auscultation bilaterally Cardio: COMMON NORMALS: no JVD, regular rate, regular rhythm and No murmurs present (Cardio) RATE: regular rate RHYTHM: regular rhythm GI: COMMON NORMALS: Soft to palpation and No hepatosplenomegaly present AUSCULTATION: Yes normoactive bowel sounds PALPATION: Yes Soft to palpation, No Tenderness to palpation present (GI), No Guarding due to palpation present (GI) and Yes No hepatosplenomegaly present Extremity: COMMON NORMALS: normal to inspection, capillary refill normal, no clubbing, cyanosis or edema, no calf tenderness and no pedal edema Neuro: SENSORIUM/ORIENTATION: Yes oriented to person, Yes oriented to place and Yes oriented to time Skin: COMMON NORMALS: no rashes or lesions noted GENERAL SKIN EXAM: no rashes or lesions noted Course Vital Signs: Vital signs: Vital Signs Temperature 98.7 F 01/17/21 12:58 Pulse Rate 122 H 01/17/21 12:58 Respiratory Rate 15 01/17/21 16:21 Blood Pressure 128/94 01/17/21 12:58 Pulse Oximetry 100 01/17/21 12:58 MDM - General Adult MDM Narrative: Medical decision making narrative: Reviewed labs and imaging with the patient as found on the chart. Organ to go ahead and treat her for mild colitis we will put her on Augmentin. Encouraged a clear liquid diet for 2 days then advance as tolerated if has any worsening symptoms return recommend she does follow-up with her primary care doctor within the week.. Lab Data: Labs: Lab Results 01/17/21 01/17/21 01/17/21 Range/Units 13:30 13:30 13:30 WBC 7.7 (4.0-10.0) 10^3/ uL RBC 4.96 (4.1-5.3) 10^6/u L Hgb 14.6 (11.5-15.3) g/dL Hct 44.8 (37.0-47.0) % MCV 90.3 (81-99) fl MCH 29.4 (28.0-34.0) pg MCHC 32.6 (30.0-36.0) g/dL RDW 12.1 (12.1-15.1) % Plt Count 275 (130-400) 10^3/c mm MPV 9.5 (7.4-10.4) fL Neut % (Auto) 68.6 % Lymph % (Auto) 24.4 % Story % (Auto) 4.7 % Eos % (Auto) 1.4 % Baso % (Auto) 0.6 % Neut # (Auto) 5.29 (1.8-7.7) 10^3/u L Lymph # (Auto) 1.9 (0.8-4.8) 10^3/u L Story # (Auto) 0.4 (0.2-0.9) 10^3/u L Eos # (Auto) 0.1 (0.0-0.8) 10^3/u L Baso # (Auto) 0.1 (0.0-0.1) 10^3/u L Nucleated RBC % (a uto) 0 % Nucleated RBCs # 0.0 /100WBC Sodium 139 (136-145) mmol/L Potassium 3.4 L (3.5-5.1) mmol/L Chloride 103 (98-107) mmol/L Carbon Dioxide 25 (22-29) mmol/L Anion Gap 14.4 (5-19) BUN 5 L (6-20) mg/dL Creatinine 0.7 (0.5-0.9) mg/dL GFR Calculation 98.3 (90-130) mL/min Glucose 72 (65-115) mg/dL Calculated Osmolal ity 284 L (285-295) mOsm/k g Lactic Acid (0.5-2.2) mmol/L Calcium 8.5 (8.5-10.5) mg/dL Total Bilirubin 0.4 (0.15-1.2) mg/dL AST 14 (0-32) U/L ALT 17 (0-33) U/L Alkaline Phosphata se 85 (35-105) IU/L Creatine Kinase 66 (26-192) U/L Total Protein 7.6 (6.6-8.7) g/dL Albumin 4.7 (3.5-5.2) g/dL Globulin 2.9 (1.3-4.6) g/dL HCG, Qual (Negative) Urine Color Straw (Yellow) Urine Appearance Clear (CLEAR) Urine pH 8 H (5-7) Ur Specific Gravit y 1.010 (1.005-1.030) Urine Protein Neg (Negative) Urine Glucose (UA) Norm (Normal) Urine Ketones Negative (Negative) Urine Blood Neg (Negative) Urine Nitrate Negative (Negative) Urine Bilirubin Neg (Negative) Prot Sulfosalicyli c Acd Negative (Negative) Urine Urobilinogen Norm (Negative) mg/dL Ur Leukocyte Briana ase Negative (Negative) 01/17/21 01/17/21 Range/Units 13:30 13:30 WBC (4.0-10.0) 10^3/ uL RBC (4.1-5.3) 10^6/u L Hgb (11.5-15.3) g/dL Hct (37.0-47.0) % MCV (81-99) fl MCH (28.0-34.0) pg MCHC (30.0-36.0) g/dL RDW (12.1-15.1) % Plt Count (130-400) 10^3/c mm MPV (7.4-10.4) fL Neut % (Auto) % Lymph % (Auto) % Story % (Auto) % Eos % (Auto) % Baso % (Auto) % Neut # (Auto) (1.8-7.7) 10^3/u L Lymph # (Auto) (0.8-4.8) 10^3/u L Story # (Auto) (0.2-0.9) 10^3/u L Eos # (Auto) (0.0-0.8) 10^3/u L Baso # (Auto) (0.0-0.1) 10^3/u L Nucleated RBC % (a uto) % Nucleated RBCs # /100WBC Sodium (136-145) mmol/L Potassium (3.5-5.1) mmol/L Chloride (98-107) mmol/L Carbon Dioxide (22-29) mmol/L Anion Gap (5-19) BUN (6-20) mg/dL Creatinine (0.5-0.9) mg/dL GFR Calculation (90-130) mL/min Glucose (65-115) mg/dL Calculated Osmolal ity (285-295) mOsm/k g Lactic Acid 1.3 (0.5-2.2) mmol/L Calcium (8.5-10.5) mg/dL Total Bilirubin (0.15-1.2) mg/dL AST (0-32) U/L ALT (0-33) U/L Alkaline Phosphata se (35-105) IU/L Creatine Kinase (26-192) U/L Total Protein (6.6-8.7) g/dL Albumin (3.5-5.2) g/dL Globulin (1.3-4.6) g/dL HCG, Qual Negative (Negative) Urine Color (Yellow) Urine Appearance (CLEAR) Urine pH (5-7) Ur Specific Gravit y (1.005-1.030) Urine Protein (Negative) Urine Glucose (UA) (Normal) Urine Ketones (Negative) Urine Blood (Negative) Urine Nitrate (Negative) Urine Bilirubin (Negative) Prot Sulfosalicyli c Acd (Negative) Urine Urobilinogen (Negative) mg/dL Ur Leukocyte Briana ase (Negative) Discharge Plan Discharge Patient Disposition: Home Clinical Impression: Hematochezia Condition: Stable Prescriptions: New Augmentin 875-125 mg tablet 1 tab PO BID Qty: 14 RF: 0 No Action dextroamphetamine-amphetamine [Adderall] 20 mg tablet 20 mg PO DAILY 30 Days Qty: 30 RF: 0 lactulose 10 gram/15 mL solution 15 ml PO BID Qty: 237 RF: 2 Discharge Orders: Discharge ED (Routine); Ordered 01/17/21 Ordered By: Melvin Rendon Referrals: Darian Rivera MD [Primary Care Provider] - Discharge Diet: Clear Liquid Discharge Activity: Increase activity as tolerated Patient Instructions: Opioid Safety Activity Restrictions/Additional Instructions: Follow-up with your primary care doctor within the next 5 to 7 days Coding Level of Care Code ED [employer]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
[2021-01-17 13:39] LABS: Add Urine Microscopic? NO; Charge for UA Resulting for Rev
[2021-01-17 13:41] LABS: Basophils # 0.1 10^3/uL (0.0-0.1); Basophils % 0.6 %; Eosinophils # 0.1 10^3/uL (0.0-0.8); Eosinophils % 1.4 %; Hematocrit 44.8 % (37.0-47.0); Hemoglobin 14.6 g/dL (11.5-15.3); Lymphocytes # 1.9 10^3/uL (0.8-4.8); Lymphocytes % 24.4 %; Mean Corpuscular HGB Conc 32.6 g/dL (30.0-36.0); Mean Corpuscular Hemoglobin 29.4 pg (28.0-34.0); Mean Corpuscular Volume 90.3 fl (81-99); Mean Platelet Volume 9.5 fL (7.4-10.4); Monocytes # 0.4 10^3/uL (0.2-0.9); Monocytes % 4.7 %; Neutrophils # 5.29 10^3/uL (1.8-7.7); Neutrophils % 68.6 %; Nucleated Red Blood Cells % 0 %; Platelet Count 275 10^3/cmm (130-400); Red Blood Count 4.96 10^6/uL (4.1-5.3); Red Cell Distribution Width 12.1 % (12.1-15.1); White Blood Count 7.7 10^3/uL (4.0-10.0)
[2021-01-17 13:52] LABS: Urine Appearance Clear (CLEAR); Urine Color Straw (Yellow); pH Urine 8 (5-7)
[2021-01-17 13:53] LABS: Bilirubin Urine Neg (Negative); Blood Urine Neg (Negative); Glucose Urine UA Norm (Normal); Ketones Urine Negative (Negative); Leukocyte Esterase Urine Negative (Negative); Nitrate Urine Negative (Negative); Protein Urine Neg (Negative); Sulfosalicylic Acid Urine Negative (Negative); Urobilinogen Urine Norm (Negative)
[2021-01-17 14:12] LABS: Alanine Aminotransferase 17 U/L (0-33); Albumin Level 4.7 g/dL (3.5-5.2); Alkaline Phosphatase 85 IU/L (35-105); Anion Gap 14.4 (5-19); Aspartate Amino Transferase 14 U/L (0-32); Blood Urea Nitrogen 5 mg/dL (6-20); Calcium 8.5 mg/dL (8.5-10.5); Carbon Dioxide 25 mmol/L (22-29); Chloride 103 mmol/L (98-107); Creatine Phosphokinase 66 U/L (26-192); Globulin 2.9 g/dL (1.3-4.6); Glomerular Filtration Rate 98.3 mL/min (90-130); Glucose 72 mg/dL (65-115); Osmolality Calculated 284 mOsm/kg (285-295); Potassium 3.4 mmol/L (3.5-5.1); Sodium 139 mmol/L (136-145); Total Bilirubin 0.4 mg/dL (0.15-1.2); Total Protein 7.6 g/dL (6.6-8.7)
[2021-01-17 14:26] LABS: HCG, Serum Qual Negative (Negative)
[2021-01-17 14:32] VITALS: RESP 15
[2021-01-17 15:07] LABS: Lactic Sepsis W/Reflex 1.3 mmol/L (0.5-2.2)
[2021-01-17] MEDS: iohexol 300 mg/mL 100 mL Btl IV (15:10)
[2021-01-17 16:21] VITALS: RESP 15
== END 2021-01-17 16:22 | disposition home or self-care (01) ==
PROVIDERS: Emergency Provider Family Medicine; PCP Family Medicine
DX: K92.1 Melena (principal)
CPT/HCPCS: 74177; 80053; 81003; 82550; 83605; 84703; 85025; 99283; Q9967

== ENCOUNTER → 2021-01-27 15:28 | Outpatient (BNVA) | payer OTHER, SELFPAY | PROVIDERS: PCP Family Medicine; Visit Provider Surgery | DX: Z20.822 Contact with and (suspected) exposure to COVID-19 (principal) | CPT/HCPCS: 87635 ==

== ENCOUNTER 2021-01-31 06:30 | Day surgery (SDC) | payer MEDICAID, SELFPAY ==
[2021-01-28 09:38] VITALS: BMI 28.9
--- NOTE | 2021-01-31 06:49 | ANES.PREANE2 ---
Pre-Anesthetic Assessment Pre-Anesthetic Assessment: Height/Weight: Height 1.57 m Weight 71.668 kg Preop Diagnosis: screening colonoscopy Proposed Procedure: Operation Date: 01/31/21 08:00 Proposed Procedures p Colonoscopy 21459 K92.1(Not Applicable) - Jabari Jung MD Familial anesthetic complications: mild ponv Was Beta Venkat taken within 24 hours: N/A Was Clonidine taken within 24 hours: N/A Last intake: > 8 hrs Social: Social History: Tobacco and No alcohol Exam: Pre-Anes Outpt Exam: alert, oriented x 3, clear to auscultation bilaterally and regular rate & rhythm Airway: Cervical ROM: WNL MP: 1 Dentition: Full GI: GI: GERD Comments: IBS Anesthetic Plan: ASA status: 2 Anesthesia: MAC Risk of > 500 ml blood loss (7ml/kg in children): No PFSH Anesthesia PFSH: Medical History ADD (attention deficit disorder) ADHD Gastro-esophageal reflux History of IBS Surgical History History of colonoscopy History of esophagogastroduodenoscopy (EGD) S/P cholecystectomy Family History Denies family history of Anesthesia complication Bleeding disorder Social History Current gender identity: Female Female Reproductive History: Date of last menstrual period: 10/13/20 Data Anesthesia Cardiac Studies: No Data to Display
[2021-01-31 07:16] VITALS: BP 109/83; PULSE 75; RESP 18; TEMP 36; O2SAT 97
[2021-01-31] MEDS: sodium chloride 0.9% 1,000 ML 30 ML IV (07:28)
[2021-01-31 07:34] LABS: OR HCG Qualitative Urine Negative (Negative)
--- NOTE | 2021-01-31 07:48 | W.PM.OPSUD ---
Surgery/Procedure H&P Update DATE OF PROCEDURE: January 31, 2021 DATE H&P PERFORMED: 01/18/21 H&P UPDATE INFORMATION: I have reviewed H&P completed within last 30 days, I have examined patient prior to procedure and No changes to prior documentation PREOP DIAGNOSIS: screening colonoscopy PLANNED PROCEDURE: Operation Date: 01/31/21 08:00 Proposed Procedures p Colonoscopy 13368 K92.1(Not Applicable) - Jabari Jung MD
[2021-01-31 08:15] VITALS: BP 113/88; PULSE 75; RESP 16; TEMP 36.2; O2SAT 94
[2021-01-31 08:32] VITALS: BP 118/91; PULSE 64; RESP 16; O2SAT 100
--- NOTE | 2021-01-31 16:30 | ANE.PACU2 ---
Inpatient post-anesthesia follow up: Airway intact: Yes Vital signs: Temperature 97.2 F Pulse Rate 64 Respiratory Rate 16 Blood Pressure 118/91 Pulse Oximetry 100 Oxygen Delivery Me thod Room Air Oxygen Flow Rate Fraction of Inspir ed Oxygen Hydration adequate: No Nausea and vomiting: Yes Pain level: 1 Mental status: Baseline
== END 2021-01-31 08:45 | disposition home or self-care (01) ==
PROVIDERS: Anesthesiology; PCP Family Medicine; Visit Provider Surgery
PROC: 0DJD8ZZ Inspection of Lower Intestinal Tract, Via Natural or Artificial Opening Endoscopic (ICD-10-PCS; CPT 45378; principal; 2021-01-31 08:00)
DX: K92.1 Melena (principal); Z87.19 Personal history of other diseases of the digestive system; K52.9 Noninfective gastroenteritis and colitis, unspecified; F98.8 Other specified behavioral and emotional disorders with onset usually occurring in childhood and adolescence; F90.9 Attention-deficit hyperactivity disorder, unspecified type
CPT/HCPCS: 45380; 81025; 82274; 83630; 84703; 87493; 87506; 88305; 96360; J2704; J7030

== ENCOUNTER → 2021-06-20 10:41 | Outpatient (BNVA) | payer BC, SELFPAY | PROVIDERS: PCP Family Medicine; Visit Provider Social Worker | DX: F43.12 Post-traumatic stress disorder, chronic (principal) | CPT/HCPCS: 90791 ==

== ENCOUNTER → 2021-06-26 18:32 | Outpatient (BNVA) | payer BC, SELFPAY | PROVIDERS: PCP Family Medicine; Visit Provider Registered Nurse Neonatal Intensive Care | DX: Z20.822 Contact with and (suspected) exposure to COVID-19 (principal) | CPT/HCPCS: 87635 ==

== ENCOUNTER → 2021-07-21 08:00 | Outpatient (BNVA) | payer MEDICAID, SELFPAY | PROVIDERS: PCP Family Medicine; Visit Provider Psychiatry & Neurology Psychiatry | DX: F90.9 Attention-deficit hyperactivity disorder, unspecified type (principal); F98.8 Other specified behavioral and emotional disorders with onset usually occurring in childhood and adolescence; F33.0 Major depressive disorder, recurrent, mild | CPT/HCPCS: 99204 ==

== ENCOUNTER 2021-08-05 10:10 | Emergency (ER) | payer BC, MEDICAID, SELFPAY ==
[2021-08-05 10:20] VITALS: BP 130/90; PULSE 83; TEMP 37.2; O2SAT 97; BMI 32.9
--- NOTE | 2021-08-05 10:35 | CT_ITS ---
WS: [id number] CT ABDOMEN AND PELVIS WITH CONTRAST HISTORY: abdominal pain; N/V/D; hx of partial SBO TECHNIQUE: Imaging performed of the abdomen and pelvis with IV contrast. Single phase imaging of the abdomen. Coronal and sagittal reformats are submitted. All CT scans at [facility] use at [address] one of these dose optimization techniques: automated exposure control; mA and/or kV adjustment per patient size (includes targeted exams where dose is matched to clinical indication); or iterative re construction. IV CONTRAST: Omnipaque 300; 95 mL IV. Oral contrast: No DLP: 1376.3 mGy.cm COMPARISON: 01/17/2021, 11/12/2020 Lower thorax: Lung bases are clear. Heart is normal size. No hiatal hernia. Liver/biliary system: Normal size with no intrahepatic dilatation. Normal portal vein. Portal splenic confluence is in normal position. Gallbladder: Status post cholecystectomy. Pancreas: Normal size pancreas and pancreatic duct. No adjacent inflammation. Spleen: Normal size spleen. No mass or infarct. Adrenal glands: Normal. Right kidney: Normal. Left kidney: No obstruction. Very mild anterior rotation of the LEFT kidney. Aorta: Normal. Lymphadenopathy: None. Free fluid: None. GI tract: Stomach is nondistended. Proximal small bowel was normal. There are several loops of small bowel in the upper abdomen and greatest to the RIGHT of midline with areas mucosal and submucosal danilo ma and thickening and increase fluid. There is wall thickening with the diameter measuring just over 3 cm. Focal enteritis is suspected. Additional parts of the small bowel are normal. Appendix is monisha l. No colon obstruction. Abdominal wall: Unremarkable abdominal wall. No hernia. Pelvis: Well-distended urinary bladder. Uterus is slightly retroflexed. Bones: Unremarkable. CT/CT abdomen pelvis w con* [id number] IMPRESSION: 1. Focal small bowel wall thickening, edema and mild dilatation in the upper a bdomen extending greatest to the RIGHT of midline. Most likely due to focal ent eritis. There is a very mild twisting of the central mesenteric structures. At this time the orientation of the SMV and SMA remain normal. If symptoms do not improve internal hernia or minimal volvulus should be considered. At this time there is no high-grade obstruction or free air. 2. No ascites. 3. Prior cholecystectomy.
--- NOTE | 2021-08-05 10:36 | W.ED.ABDPA2 ---
HPI - Abdominal Pain General: Chief Complaint: Abdominal Pain Stated Complaint: V/D/N hx of bowel abstruction Time Seen by Provider: 08/05/21 10:28 Source: patient Mode of arrival: ambulatory Limitations: no limitations History of Present Illness: Patient is a 31-year-old female presents to ED today with complaint of epigastric abdominal pain, nausea, vomiting and diarrhea. Patient states symptoms started this morning. She states she has had approximately 5 episodes of non-bloody/non-bilious emesis and multiple episodes of watery non-bloody diarrhea. She states she will get similar symptoms every once in a while but states her abdominal pain today is similar to when she had a partial small bowel obstruction. She is complaining of crampy upper/epigastric abdominal pains. Patient has not been running fevers. No poor food exposures. No new medications. She has not found any worsening factors to her discomfort. Interestingly enough she states she has been in a warm bath/shower all morning stating this helps her feel better. 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 Patient has a longstanding history of GI complaints. She states she has been diagnosed with irritable bowel syndrome. Patient has had 3 previous colonoscopies and apparently is scheduled for another EGD/colonoscopy. MD elicited complaint: abdominal pain Pertinent past history: other (hx partial SBO) Onset (ago): hour(s) Pain Consistency: constant Location: Epigastric Severity: severe Quality: cramping Radiation: none Migration to: no migration Relieving factors: other (hot bath/shower) Associated Symptoms: Reports GI cramping, diarrhea, nausea and vomiting; Denies chills, dysuria, fever(s), hematochezia, hematuria, hematemesis, melena and syncope Related Data: Date of Last Menstrual Period: 10/13/20 Review of Systems Const: Denies: fever(s), chills, body aches, fatigue or malaise Eyes: Denies: change in vision Card: Denies: chest pain, palpitations, edema, lightheadedness, syncope or pre-syncope Resp: Denies: dyspnea GI: Reports: abdominal pain, nausea, vomiting, diarrhea and GI cramping; Denies: hematemesis, pain on defecation, rectal pain, hematochezia or melena : Denies: flank pain, difficulty voiding, dysuria, hematuria or pelvic pain Musc: Denies: neck pain, back pain, extremity pain or joint pain Skin/Breast: Denies: rash Neuro: Denies: headache(s), numbness in extremities, weakness in extremities, sensory changes or dizziness PFSH ED PFSH: Medical History ADD (attention deficit disorder) ADHD Gastro-esophageal reflux Irritable bowel syndrome with diarrhea Psychiatric care Surgical History History of colonoscopy (01/31/21) History of esophagogastroduodenoscopy (EGD) S/P cholecystectomy Family History Denies family history of Anesthesia complication Bleeding disorder Social History Smoking and tobacco status: former smoker Current gender identity: Female Female Reproductive History: Date of last menstrual period: 10/13/20 Physical Exam Const: COMMON NORMALS: no acute distress, patient oriented x3, no limitations, alert and well nourished GENERAL APPEARANCE: cooperative ORIENTATION/CONSCIOUSNESS: Yes awake, Yes oriented to person, Yes oriented to place and Yes oriented to time HENMT: COMMON NORMALS: normocephalic and atraumatic HEAD & SCALP: normal to inspection, normocephalic and atraumatic Neck/C-Spine: COMMON NORMALS: full ROM, no lymphadenopathy, supple and no meningeal signs Chest: COMMONS NORMALS: normal inspection of the chest and normal palpation of entire chest wall Resp: COMMON NORMALS: normal respiratory effort and clear to auscultation bilaterally AUSCULTATION: clear to auscultation bilaterally Cardio: COMMON NORMALS: regular rate and regular rhythm RATE: regular rate RHYTHM: regular rhythm GI: COMMON NORMALS: Normal to inspection, nondistended, normoactive bowel sounds present, Soft to palpation, No hepatosplenomegaly present and no masses PALPATION: Yes Soft to palpation, Yes Tenderness to palpation present (GI) (epigastric), No Guarding due to palpation present (GI), No Rigid due to palpation and Yes No hepatosplenomegaly present : COMMON NORMALS: Yes no CVA tenderness BLADDER/KIDNEY EXAM: Yes no CVA tenderness Back/Pelvis: COMMON NORMALS: no CVA tenderness and thoracic and lumbar spine normal to inspection Extremity: COMMON NORMALS: normal to inspection Neuro: NAHID COMA SCALE: document GCS findings N[place] coma scale eye opening: Spontaneous [place] coma scale verbal response: Orientated [place] coma scale motor response: Obey commands [place] coma scale total score: 15 COMMON NORMALS: patient oriented x3, moves all extremities, no focal motor deficits and no sensory deficits noted SENSORIUM/ORIENTATION: Yes alert, Yes oriented to person, Yes oriented to place and Yes oriented to time MENINGEAL SIGNS: Yes no meningeal signs Skin: COMMON NORMALS: no rashes or lesions noted GENERAL SKIN EXAM: no rashes or lesions noted Course Consultations: Consultation #1: Dr. Jung-recommends cipro/flagyl and follow up with her general surgeon; return to ED precautions Vital Signs: Vital signs: Vital Signs Temperature 98.9 F 08/05/21 10:20 Pulse Rate 83 08/05/21 10:20 Blood Pressure 126/103 08/05/21 11:25 Pulse Oximetry 97 08/05/21 11:25 MDM - Abdominal Pain Medical Decision Making Patient has not had any episodes of vomiting or diarrhea while here. During re-examination she is resting comfortably in bed. Her vital signs are stable. Blood work is completely unremarkable. CT scan showing a focal area of enteritis. Radiologist also commented on a mild twisting of the central mesenteric structures however stated that the orientation of her SMV/SMA are normal. She stated if symptoms do not seem to improve internal hernia or minimal volvulus should be considered. Due to these findings I did consult with Dr. Jung/general surgery who reviewed patient's CT scan. He did not feel patient needed to be admitted to the hospital at this time and recommended Cipro/Flagyl for the enteritis and recommend she follow-up with Dr. Ordonez who she saw 2 weeks ago and who is planning her upcoming colonoscopy/EGD. Strict return to ED precautions were verbally given to patient who vocalized understanding. Case also discussed with Dr. Edwards. Lab Data : 08/05/21 11:16 08/05/21 11:16 Labs/Radiology: Radiology Impressions Abdomen/Pelvis CT 08/05/21 10:35 IMPRESSION: 1. Focal small bowel wall thickening, edema and mild dilatation in the upper abdomen extending greatest to the RIGHT of midline. Most likely due to focal enteritis. There is a very mild twisting of the central mesenteric structures. At this time the orientation of the SMV and SMA remain normal. If symptoms do not improve internal hernia or minimal volvulus should be considered. At this time there is no high-grade obstruction or free air. 2. No ascites. 3. Prior cholecystectomy. Laboratory Results WBC 9.9 10^3/uL (4.0-10.0) 08/05/21 11:16 RBC 4.76 10^6/uL (4.1-5.3) 08/05/21 11:16 Hgb 13.7 g/dL (11.5-15.3) 08/05/21 11:16 Hct 43.3 % (37.0-47.0) 08/05/21 11:16 MCV 91.0 fl (81-99) 08/05/21 11:16 MCH 28.8 pg (28.0-34.0) 08/05/21 11:16 MCHC 31.6 g/dL (30.0-36.0) 08/05/21 11:16 RDW 12.3 % (12.1-15.1) 08/05/21 11:16 Plt Count 291 10^3/cmm (130-400) 08/05/21 11:16 MPV 9.0 fL (7.4-10.4) 08/05/21 11:16 Neut % (Auto) 87.9 % 08/05/21 11:16 Lymph % (Auto) 7.6 % 08/05/21 11:16 Smyth % (Auto) 3.6 % 08/05/21 11:16 Eos % (Auto) 0.3 % 08/05/21 11:16 Baso % (Auto) 0.3 % 08/05/21 11:16 Neut # (Auto) 8.69 10^3/uL (1.8-7.7) H 08/05/21 11:16 Lymph # (Auto) 0.8 10^3/uL (0.8-4.8) 08/05/21 11:16 Smyth # (Auto) 0.4 10^3/uL (0.2-0.9) 08/05/21 11:16 Eos # (Auto) 0.0 10^3/uL (0.0-0.8) 08/05/21 11:16 Baso # (Auto) 0.0 10^3/uL (0.0-0.1) 08/05/21 11:16 Nucleated RBC % (auto) 0 % 08/05/21 11:16 Nucleated RBCs # 0.0 /100WBC 08/05/21 11:16 Sodium 137 mmol/L (136-145) 08/05/21 11:16 Potassium 4.2 mmol/L (3.5-5.1) 08/05/21 11:16 Chloride 104 mmol/L (98-107) 08/05/21 11:16 Carbon Dioxide 21 mmol/L (22-29) L 08/05/21 11:16 Anion Gap 16.2 (5-19) 08/05/21 11:16 BUN 15 mg/dL (6-20) 08/05/21 11:16 Creatinine 0.7 mg/dL (0.5-0.9) 08/05/21 11:16 GFR Calculation 98.3 mL/min (90-130) 08/05/21 11:16 Glucose 112 mg/dL (65-115) 08/05/21 11:16 Calculated Osmolality 286 mOsm/kg (285-295) 08/05/21 11:16 Lactic Acid 1.3 mmol/L (0.5-2.2) 08/05/21 11:16 Calcium 9.2 mg/dL (8.5-10.5) 08/05/21 11:16 Total Bilirubin 0.3 mg/dL (0.15-1.2) 08/05/21 11:16 AST 15 U/L (0-32) 08/05/21 11:16 ALT 16 U/L (0-33) 08/05/21 11:16 Alkaline Phosphatase 71 IU/L (35-105) 08/05/21 11:16 Total Protein 7.4 g/dL (6.6-8.7) 08/05/21 11:16 Albumin 4.6 g/dL (3.5-5.2) 08/05/21 11:16 Globulin 2.8 g/dL (1.3-4.6) 08/05/21 11:16 Lipase 27 U/L (13-60) 08/05/21 11:16 HCG, Qual Negative (Negative) 08/05/21 11:16 Urine Color Yellow (Yellow) 08/05/21 11:04 Urine Appearance Clear (CLEAR) 08/05/21 11:04 Urine pH 6.5 (5-7) 08/05/21 11:04 Ur Specific [place] 1.020 (1.005-1.030) 08/05/21 11:04 Urine Protein Neg (Negative) 08/05/21 11:04 Urine Glucose (UA) Norm (Normal) 08/05/21 11:04 Urine Ketones Negative (Negative) 08/05/21 11:04 Urine Blood Neg (Negative) 08/05/21 11:04 Urine Nitrate Negative (Negative) 08/05/21 11:04 Urine Bilirubin Neg (Negative) 08/05/21 11:04 Urine Urobilinogen Neg mg/dL (Negative) 08/05/21 11:04 Ur Leukocyte Esterase Negative (Negative) 08/05/21 11:04 Discharge Plan Discharge Patient Disposition: Home Clinical Impression: Enteritis Condition: Stable Prescriptions: New Cipro 500 mg tablet 500 mg PO Q12H Qty: 14 0RF metronidazole 500 mg tablet 500 mg PO BID 7 Days Qty: 14 0RF ondansetron 4 mg tablet,disintegrating 4 mg PO Q8H PRN (Reason: nausea and vomiting) Qty: 14 0RF No Action niacin 500 mg tablet 500 mg PO DAILY 0RF Lions Ace Mushroom 1 tab PO DAILY 0RF Adderall 20 mg tablet 20 mg PO QAM 0RF Discharge Orders: Discharge ED (Routine); Ordered 08/05/21 Ordered By: Samime Christensen Referrals: Darian Rivera MD [Primary Care Provider] - Patient Instructions: Enteritis (ED) Activity Restrictions/Additional Instructions: As we discussed you need to return to the emergency department for worsening or uncontrollable abdominal pain, repetitive episodes of vomiting despite Zofran use, inability to hold down your antibiotics, blood in your vomit or stools, severe diarrhea, fevers greater than 100.4, or any other concerns you may have. As we discussed please try to follow-up with Dr. Ordonez next week for re-evaluation if you do not seem to be improving. Stand Alone Forms: Work/School Release Coding Level of Care Code ED Chain Machine Operator for Chg Fwd Exam Comprehensive
[2021-08-05] MEDS: ondansetron 2 mg/ML SDV 2 mL 4 MG IVP (11:18)
[2021-08-05] MEDS: sodium chloride 0.9% 1,000 ML 999 ML IV (11:19)
[2021-08-05 11:23] LABS: Basophils % 0.3 %; Eosinophils % 0.3 %; Hematocrit 43.3 % (37.0-47.0); Hemoglobin 13.7 g/dL (11.5-15.3); Lymphocytes # 0.8 10^3/uL (0.8-4.8); Lymphocytes % 7.6 %; Mean Corpuscular HGB Conc 31.6 g/dL (30.0-36.0); Mean Corpuscular Hemoglobin 28.8 pg (28.0-34.0); Monocytes # 0.4 10^3/uL (0.2-0.9); Monocytes % 3.6 %; Neutrophils # 8.69 10^3/uL (1.8-7.7); Neutrophils % 87.9 %; Nucleated Red Blood Cells % 0 %; Platelet Count 291 10^3/cmm (130-400); Red Blood Count 4.76 10^6/uL (4.1-5.3); Red Cell Distribution Width 12.3 % (12.1-15.1); White Blood Count 9.9 10^3/uL (4.0-10.0)
[2021-08-05 11:25] VITALS: BP 126/103; O2SAT 97
[2021-08-05 11:26] LABS: Add Urine Microscopic? NO; Charge for UA Resulting for Rev
[2021-08-05 11:29] LABS: Bilirubin Urine Neg (Negative); Blood Urine Neg (Negative); Glucose Urine UA Norm (Normal); Ketones Urine Negative (Negative); Leukocyte Esterase Urine Negative (Negative); Nitrate Urine Negative (Negative); Protein Urine Neg (Negative); Urine Appearance Clear (CLEAR); Urine Color Yellow (Yellow); Urobilinogen Urine Neg (Negative); pH Urine 6.5 (5-7)
[2021-08-05 11:43] LABS: HCG, Serum Qual Negative (Negative)
[2021-08-05 11:50] LABS: Alanine Aminotransferase 16 U/L (0-33); Albumin Level 4.6 g/dL (3.5-5.2); Alkaline Phosphatase 71 IU/L (35-105); Anion Gap 16.2 (5-19); Aspartate Amino Transferase 15 U/L (0-32); Blood Urea Nitrogen 15 mg/dL (6-20); Calcium 9.2 mg/dL (8.5-10.5); Carbon Dioxide 21 mmol/L (22-29); Chloride 104 mmol/L (98-107); Globulin 2.8 g/dL (1.3-4.6); Glomerular Filtration Rate 98.3 mL/min (90-130); Glucose 112 mg/dL (65-115); Lipase 27 U/L (13-60); Osmolality Calculated 286 mOsm/kg (285-295); Potassium 4.2 mmol/L (3.5-5.1); Sodium 137 mmol/L (136-145); Total Bilirubin 0.3 mg/dL (0.15-1.2); Total Protein 7.4 g/dL (6.6-8.7)
[2021-08-05 11:52] LABS: Lactic Sepsis W/Reflex 1.3 mmol/L (0.5-2.2)
[2021-08-05] MEDS: iohexol 300 mg/mL 100 mL Btl IV (12:29)
[2021-08-05 14:11] VITALS: BP 131/83; PULSE 87; RESP 16; O2SAT 98
== END 2021-08-05 14:13 | disposition home or self-care (01) ==
PROVIDERS: Emergency Provider Physician Assistant; PCP Family Medicine
DX: K52.9 Noninfective gastroenteritis and colitis, unspecified (principal); Z87.891 Personal history of nicotine dependence; F90.9 Attention-deficit hyperactivity disorder, unspecified type
CPT/HCPCS: 74177; 80053; 81003; 83605; 83690; 84703; 85025; 96361; 96374; 99283; J2405; J7030; Q9967

== ENCOUNTER → 2021-08-09 14:59 | Outpatient (BNVA) | payer BC, MEDICAID, SELFPAY | PROVIDERS: PCP Family Medicine; Visit Provider Internal Medicine Cardiovascular Disease | DX: R00.2 Palpitations (principal); R00.0 Tachycardia, unspecified | CPT/HCPCS: 93270 ==

== ENCOUNTER → 2021-08-10 10:25 | Outpatient (BNVA) | payer BC, MEDICAID, SELFPAY | PROVIDERS: PCP Family Medicine; Referring Provider Dermatology; Visit Provider Surgery | DX: K92.1 Melena (principal); R10.9 Unspecified abdominal pain; R11.2 Nausea with vomiting, unspecified | CPT/HCPCS: 99213 ==

== ENCOUNTER 2021-09-21 15:13 | Emergency (ER) | payer BC, MEDICAID, SELFPAY ==
[2021-09-21 15:45] VITALS: BP 149/97; PULSE 86; RESP 17; TEMP 36.6; O2SAT 98; BMI 32.9
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
== END 2021-09-21 16:50 | disposition home or self-care (01) ==
PROVIDERS: Emergency Provider Physician Assistant; PCP Family Medicine
DX: F41.0 Panic disorder [episodic paroxysmal anxiety] (principal); Z87.891 Personal history of nicotine dependence
CPT/HCPCS: 99283

== ENCOUNTER 2021-09-22 09:38 | Outpatient (CLI) | payer BC, MEDICAID, SELFPAY ==
--- NOTE | 2021-09-22 09:52 | FL_ITS ---
WS: [id number] Small bowel series, 09/22/2021 Clinical Data: ABDOMINAL PAIN Comparison: CT abdomen pelvis, 08/05/2021. Fluoroscopy time: 0min [id number] # of spot films: 9 Findings: The pulmonary film revealed fecal material in the colon. There are clips in the right upper quadrant from a cholecystectomy. The patient ingested 2 cups of barium and there was prompt progression of the barium from the stomach into the small bowel. The duodenum, jejunum and ileum filled promptly. There is minimal dilatation of the jejunum in the left upper quadrant up to 4.5 cm but there were no intra luminal filling defects or evidence of obstruction. The ileum appear to be normal in size. The barium progressed into the ascending colon. Spot films of the small bowel reveal no abnormalities. However a spot image of the ascending colon revealed a 2.4 cm long narrowing which was not present on the CT abdomen and pelvis. Because there is only [address] abdomen pelvis and the current [facility], this narrowing is unlikely to represent colon cancer. However it could represent a reaction t o medication, a vascular narrowing, development of colitis or other abnormalities. FL/FL small bowel series* [id number] Impression: 1. Narrowing of the ascending colon and recommend barium enema or colonoscopy. 2. Moderate dilatation of the proximal jejunal loops without obstruction or int raluminal filling defect which could be a reaction to medication or a post jeju nitis finding.
== END 2021-09-22 09:39 | disposition home or self-care (01) ==
PROVIDERS: PCP Family Medicine; Visit Provider Surgery
DX: R10.9 Unspecified abdominal pain (principal); R93.3 Abnormal findings on diagnostic imaging of other parts of digestive tract
CPT/HCPCS: 74250

== ENCOUNTER 2021-10-14 08:57 | Emergency (ER) | payer BC, MEDICAID, SELFPAY ==
[2021-10-14] VITALS (7 sets, daily range): BP systolic 113–133; BP diastolic 79–90; PULSE 62–76; RESP 13–16; TEMP 37; O2SAT 97–99; BMI 33.8
--- NOTE | 2021-10-14 09:34 | W.ED.GIBLEED ---
HPI - GI Bleed General: Chief complaint: GI Bleed Stated complaint: Blood in stool Time Seen by Provider: 10/14/21 09:11 History of Present Illness: Patient comes in with nausea, and diarrhea for the past couple of days. States she has a history of IBS and is used to it, however every now and then she will have blood in her stool which she did have last night. States that every time that happens she gets concerned. Associated symptoms: Reports abdominal pain, nausea and vomiting; Denies fever(s), headache(s) or rash Review of Systems Const: Denies: fever(s) or body aches Eyes: Denies: change in vision or blurry vision ENMT: Denies: throat pain or odynophagia Card: Denies: chest pain or palpitations Resp: Denies: dyspnea or productive cough GI: Reports: abdominal pain, nausea, vomiting, diarrhea and hematochezia : Denies: flank pain or dysuria Musc: Denies: neck pain or back pain Skin/Breast: Denies: rash or pruritus Neuro: Denies: headache(s) or numbness in extremities Psych: Denies: anxiety or change in appetite Endo: Denies: polyuria or excessive sweating PFSH ED PFSH: Medical History (Updated 10/14/21 @ 12:07 by Ravi Edwards MD) ADD (attention deficit disorder) ADHD Anxiety Gastro-esophageal reflux Irritable bowel syndrome with diarrhea Posttraumatic stress disorder Psychiatric care Surgical History History of colonoscopy (01/31/21) History of esophagogastroduodenoscopy (EGD) S/P cholecystectomy Family History Denies family history of Anesthesia complication Bleeding disorder Social History Smoking and tobacco status: former smoker Current gender identity: Female Female Reproductive History: Date of last menstrual period: 09/08/21 Physical Exam Const: COMMON NORMALS: no acute distress, patient oriented x3, healthy appearing and alert HENMT: COMMON NORMALS: normocephalic and atraumatic HEAD & SCALP: normocephalic and atraumatic Eye: COMMON NORMALS: Equal, round and reactive pupils present and EOMs intact bilaterally PUPIL: Yes Equal, round and reactive pupils present Neck/C-Spine: COMMON NORMALS: full ROM and supple Resp: COMMON NORMALS: normal respiratory effort, No retractions and No use of accessory muscles Cardio: COMMON NORMALS: regular rate and regular rhythm RATE: regular rate RHYTHM: regular rhythm GI: COMMON NORMALS: Normal to inspection, nondistended, normoactive bowel sounds present, Soft to palpation and non-tender PALPATION: Yes Soft to palpation Back/Pelvis: COMMON NORMALS: thoracic and lumbar spine normal to inspection and no thoracic nor lumbar tenderness Extremity: COMMON NORMALS: normal to inspection and full ROM Neuro: COMMON NORMALS: patient oriented x3 SENSORIUM/ORIENTATION: Yes alert Psych: COMMON NORMALS: mental status grossly normal and cooperative Skin: COMMON NORMALS: no rashes or lesions noted and no wounds GENERAL SKIN EXAM: no rashes or lesions noted Course Vital Signs: Vital signs: Vital Signs Temperature 98.6 F 10/14/21 09:01 Pulse Rate 76 10/14/21 10:37 Respiratory Rate 14 10/14/21 10:37 Blood Pressure 123/79 10/14/21 10:37 Pulse Oximetry 99 10/14/21 10:37 MDM - GI Bleed Medical Decision Making Patient comes in with nausea, and diarrhea for the past couple of days. States she has a history of IBS and is used to it, however every now and then she will have blood in her stool which she did have last night. States that every time that happens she gets concerned. Physical exam at this time is unremarkable without soft nontender abdomen. Will check labs, and reassess. On reassessment I talked to the patient about the test results. Will discharge home at this time with precautions to return for worsening or changing symptoms. Lab Data : 10/14/21 09:30 10/14/21 09:30 Laboratory Results WBC 5.4 10^3/uL (4.0-10.0) 10/14/21 09:30 RBC 4.78 10^6/uL (4.1-5.3) 10/14/21 09:30 Hgb 14.0 g/dL (11.5-15.3) 10/14/21 09:30 Hct 41.5 % (37.0-47.0) 10/14/21 09:30 MCV 86.8 fl (81-99) 10/14/21 09:30 MCH 29.3 pg (28.0-34.0) 10/14/21 09:30 MCHC 33.7 g/dL (30.0-36.0) 10/14/21 09:30 RDW 11.9 % (12.1-15.1) L 10/14/21 09:30 Plt Count 248 10^3/cmm (130-400) 10/14/21 09:30 MPV 9.0 fL (7.4-10.4) 10/14/21 09:30 Neut % (Auto) 58.1 % 10/14/21 09:30 Lymph % (Auto) 30.6 % 10/14/21:30 Weber % (Auto) 6.7 % 10/14/21:30 Eos % (Auto) 3.7 % 10/14/21 09:30 Baso % (Auto) 0.7 % 10/14/21:30 Neut # (Auto) 3.11 10^3/uL (1.8-7.7) 10/14/21 09:30 Lymph # (Auto) 1.6 10^3/uL (0.8-4.8) 10/14/21 09:30 Weber # (Auto) 0.4 10^3/uL (0.2-0.9) 10/14/21 09:30 Eos # (Auto) 0.2 10^3/uL (0.0-0.8) 10/14/21 09:30 Baso # (Auto) 0.0 10^3/uL (0.0-0.1) 10/14/21: Nucleated RBC % (auto) 0 % 10/14/21:30 Nucleated RBCs # 0.0 /100WBC 10/14/21 09:30 Sodium 137 mmol/L (136-145) 10/14/21 09:30 Potassium 3.9 mmol/L (3.5-5.1) 10/14/21 09:30 Chloride 102 mmol/L (98-107) 10/14/21 09:30 Carbon Dioxide 24 mmol/L (22-29) 10/14/21 09:30 Anion Gap 14.9 (5-19) 10/14/21:30 BUN 12 mg/dL (6-20) 10/14/21 09:30 Creatinine 0.6 mg/dL (0.5-0.9) 10/14/21 09:30 GFR Calculation 117.4 mL/min (90-130) 10/14/21 09:30 Glucose 89 mg/dL (65-115) 10/14/21 09:30 Calculated Osmolality 283 mOsm/kg (285-295) L 10/14/21 09:30 Calcium 8.7 mg/dL (8.5-10.5) 10/14/21 09:30 Discharge Plan Discharge Patient Disposition: Home Clinical Impression: Diarrhea Condition: Stable Prescriptions: No Action Ativan 0.5 mg tablet 0.5 mg PO DAILY PRN (Reason: SEVERE ANXIETY/PANIC ATTACK) Qty: 15 1RF atomoxetine [Strattera] 25 mg capsule 25 mg PO QAM 30 Days Qty: 30 3RF ondansetron 4 mg tablet,disintegrating 4 mg PO Q6H PRN (Reason: nausea and vomiting) 30 Days Qty: 60 1RF pantoprazole 40 mg tablet,delayed release (DR/EC) 40 mg PO DAILY 30 Days Qty: 30 2RF Discharge Orders: Discharge ED (Routine); Ordered 10/14/21 Ordered By: Ravi Edwards Referrals: Darian Rivera MD [Primary Care Provider] - Coding Level of Care Code ED Multigraph Operator for Chg Fwd Exam Comprehensive
[2021-10-14 09:36] LABS: Basophils % 0.7 %; Eosinophils # 0.2 10^3/uL (0.0-0.8); Eosinophils % 3.7 %; Hematocrit 41.5 % (37.0-47.0); Lymphocytes # 1.6 10^3/uL (0.8-4.8); Lymphocytes % 30.6 %; Mean Corpuscular HGB Conc 33.7 g/dL (30.0-36.0); Mean Corpuscular Hemoglobin 29.3 pg (28.0-34.0); Mean Corpuscular Volume 86.8 fl (81-99); Monocytes # 0.4 10^3/uL (0.2-0.9); Monocytes % 6.7 %; Neutrophils # 3.11 10^3/uL (1.8-7.7); Neutrophils % 58.1 %; Nucleated Red Blood Cells % 0 %; Platelet Count 248 10^3/cmm (130-400); Red Blood Count 4.78 10^6/uL (4.1-5.3); Red Cell Distribution Width 11.9 % (12.1-15.1); White Blood Count 5.4 10^3/uL (4.0-10.0)
[2021-10-14 10:04] LABS: Anion Gap 14.9 (5-19); Blood Urea Nitrogen 12 mg/dL (6-20); Calcium 8.7 mg/dL (8.5-10.5); Carbon Dioxide 24 mmol/L (22-29); Chloride 102 mmol/L (98-107); Glomerular Filtration Rate 117.4 mL/min (90-130); Glucose 89 mg/dL (65-115); Osmolality Calculated 283 mOsm/kg (285-295); Potassium 3.9 mmol/L (3.5-5.1); Sodium 137 mmol/L (136-145)
== END 2021-10-14 12:27 | disposition home or self-care (01) ==
PROVIDERS: Emergency Provider Emergency Medicine; PCP Family Medicine
DX: R19.7 Diarrhea, unspecified (principal)
CPT/HCPCS: 80048; 85025; 99284

== ENCOUNTER 2021-10-20 07:32 | Day surgery (SDC) | payer BC, MEDICAID, SELFPAY ==
[2021-10-18 13:56] VITALS: BMI 33.3
[2021-10-20 08:05] VITALS: BP 120/89; PULSE 71; RESP 16; TEMP 36.2; O2SAT 98
[2021-10-20] MEDS: sodium chloride 0.9% 1,000 ML 30 ML IV (08:08)
--- NOTE | 2021-10-20 08:41 | ANES.PREANE2 ---
Pre-Anesthetic Assessment Height/Weight: Height 1.57 m Weight 82.554 kg Temp Pulse Resp BP Pulse Ox 97.2 F L 71 16 120/89 98 10/20/21 08:05 10/20/21 08:05 10/20/21 08:05 10/20/21 08:05 10/20/21 08:05 Preop Diagnosis: Blood in stool Operation Date: 10/20/21 09:00 Proposed Procedures p EGD [id number]/k92.1/r11.2(Not Applicable) - Marlo Ordonez MD s Colonoscopy(Not Applicable) - Marlo Ordonez MD Familial anesthetic complications: PONV Was Beta Venkat taken within 24 hours: N/A Was Clonidine taken within 24 hours: N/A Last intake: Intake Last Liquid Date 10/19/21 Last Liquid Time 23:30 Last Solid Date 10/18/21 Last Solid Time 19:00 Social Tobacco and No alcohol Exam alert, oriented x 3, clear to auscultation bilaterally and regular rate & rhythm Airway Mallampati: Class I Dentition: other ( I don't have anything that's going to come out today ) Pulmonary None reported CV/HEM None reported None reported Hepatic None reported GI None reported Metabolic None reported Musc/skel None reported Neuropsych Anxiety Anesthetic Plan ASA status: 2 Anesthesia: MAC Risk of > 500 ml blood loss (7ml/kg in children): No Medications/Allergies Home Medications Medication Instructions Recorded Confirmed Last Taken Type ondansetron 4 mg disintegrating 4 mg PO Q6H PRN 30 Days #60 tab 09/05/21 10/20/21 10/19/21 Rx tablet pantoprazole 40 mg tablet,delayed 40 mg PO DAILY 30 Days #30 tab 09/05/21 10/20/21 10/19/21 Rx release atomoxetine 25 mg capsule 25 mg PO QAM 30 Days #30 cap 10/12/21 10/20/21 10/19/21 Rx (Strattera) lorazepam 0.5 mg tablet 0.5 mg PO DAILY PRN #15 tab 10/12/21 10/20/21 10/19/21 Rx Allergies Allergy/AdvReac Type Severity Reaction Status Date / Time bupropion [From Wellbutrin] Allergy angry Verified 10/20/21 07:45 duloxetine [From Cymbalta] Allergy nausea Verified 10/20/21 07:45 topiramate Allergy ADR-Anxiety Verified 10/20/21 07:45 Current Medications Generic Name Dose Route Start Last Admin Trade Name Mirtha PRN Reason Stop Dose Admin Sodium Chloride 1,000 mls @ 30 mls/hr 10/20/21 07:45 10/20/21 08:08 Sodium Chloride 0.9% IV 10/21/21 07:44 30 mls/hr .Q24H FRANDY Administration PFSH Anesthesia Medical History (Updated 10/14/21 @ 12:07 by Ravi Edwards MD) ADD (attention deficit disorder) ADHD Anxiety Gastro-esophageal reflux Irritable bowel syndrome with diarrhea Posttraumatic stress disorder Psychiatric care Surgical History History of colonoscopy (01/31/21) History of esophagogastroduodenoscopy (EGD) S/P cholecystectomy Family History Denies family history of Anesthesia complication Bleeding disorder Social History Smoking and tobacco status: former smoker Current gender identity: Female Female Reproductive History Date of last menstrual period: 09/08/21 Data Anesthesia Cardiac Studies: Cardiac Event Monitor 08/09/21
[2021-10-20 08:51] LABS: OR HCG Qualitative Urine Negative (Negative)
--- NOTE | 2021-10-20 09:08 | P.HP_ITS ---
Same Day Surgery H&P Indication for Procedure/HPI DATE OF PROCEDURE: October 20, 2021 CHIEF COMPLAINT/INDICATIONFOR SURGICAL PROCEDURE: Blood in stool PREOP DIAGNOSIS: Blood in stool PLANNED PROCEDURE: Operation Date: 10/20/21 09:00 Proposed Procedures p EGD [id number]/k92.1/r11.2(Not Applicable) - Marlo Ordonez MD s Colonoscopy(Not Applicable) - Marlo Ordonez MD 07/18/2021 This is a pleasant 31 years old female patient presents to my practice with history of repeated nausea and vomiting associated with discomfort around the [facility] area.? She reports that she has been having alternating bowel movements between diarrhea and constipation in addition to witnessing blood in stool.? Has been going back and forth for the past 1 month or so and the discomfort has been dull nothing seems to make it better or worse.? Patient also reports history of irritable bowel syndrome.? And recently undergone a CT scan of the abdomen pelvis after her visit to the ER that showed; 1.? No acute abdominal or pelvic abnormalities. 2.? No GI tract obstruction or ischemic changes. 3.? Appendix not identified but there are no secondary findings of appendicitis. 4.? Very mild narrowing of the mid transverse colon. Transverse colon was normal on a CT from 11/12/2020. This is probably an area of peristalsis and nondistention. If rectal bleeding continues consider colonoscopy for further evaluation. Patient reports that she undergone a colonoscopy back in January 2021 and showed normal findings.? And at that time stool studies were sent and random biopsies were obtained as it was thought that the patient may have an underlying Crohn's disease. A.? Small bowel, ileum , biopsy: ?Small bowel mucosa with normal villous architecture. ?No increase in intraepithelial lymphocytosis. ?No evidence of inflammation or activity. ?No dysplasia or malignancy identified. B.? Colon, random , biopsy: ?Benign colonic mucosa with increased lamina propria chronic lymphoid infiltrates. ?Reactive secondary lymphoid follicle. ?No evidence of cryptitis, crypt abscesses or chronic active colitis. ?No evidence of microscopic colitis. ?No evidence of ischemic colitis. ?No dysplasia or malignancy identified. C.? Rectum, biopsy: ?Benign rectal mucosa with increased lamina propria chronic lymphoid infiltrates. ?Reactive secondary lymphoid follicle. ?No evidence of cryptitis, crypt abscesses or chronic active colitis. ?No evidence of microscopic colitis. ?No evidence of ischemic colitis. ?No dysplasia or malignancy identified. 10/20/2021 Patient comes today for diagnostic EGD and colonoscopy Upper GI study and small bowel follow-through 09/22/2021 showed 1. Narrowing of the ascending colon and recommend barium enema or colonoscopy. 2. Moderate dilatation of the proximal jejunal loops without obstruction or intraluminal filling defect which could be a reaction to medication or a post jejunitis finding. ROS All systems have been reviewed negative except as for the above or per problem list. Medications/Allergies* Allergies/Adverse Reactions Allergy/AdvReac Type Severity Reaction Status Date / Time bupropion [From Wellbutrin] Allergy angry Verified 10/20/21 09:10 duloxetine [From Cymbalta] Allergy nausea Verified 10/20/21 09:10 topiramate Allergy ADR-Anxiety Verified 10/20/21 09:10 Current Medications: Generic Name Dose Route Start Last Admin Trade Name Freq PRN Reason Stop Dose Admin Sodium Chloride 1,000 mls @ 30 mls/hr 10/20/21 07:45 10/20/21 08:08 Sodium Chloride 0.9% IV 10/21/21 07:44 30 mls/hr .Q24H FRANDY Administration Pertinent History/Comorbid Conditions* Medical History (Updated 10/14/21 @ 12:07 by Ravi Edwards MD) ADD (attention deficit disorder) ADHD Anxiety Gastro-esophageal reflux Irritable bowel syndrome with diarrhea Posttraumatic stress disorder Psychiatric care Surgical History (Updated 01/31/21 @ 08:15 by Jabari Jung MD) History of colonoscopy (01/31/21) History of esophagogastroduodenoscopy (EGD) S/P cholecystectomy Family History (Updated 12/14/20 @ 09:05 by Ny Hooper RN) Denies family history of Anesthesia complication Bleeding disorder Social History Smoking and tobacco status: former smoker Current gender identity: Female Pertinent Exam Findings alert, oriented x 3, regular rate & rhythm and procedure specific exam findings (Abdominal examination nontender nondistended soft) Recommendations Surgery/Procedure today (Diagnostic EGD and colonoscopy) Coding Level of Care Code Acute Water Quality Tester for Nick [place]
[2021-10-20 09:41] VITALS: BP 117/72; PULSE 73; RESP 16; TEMP 36.2; O2SAT 95
[2021-10-20 09:44] VITALS: BP 109/72; PULSE 71; RESP 18; O2SAT 95
[2021-10-20 09:49] VITALS: BP 114/91; PULSE 60; RESP 18; TEMP 36.2; O2SAT 97
--- NOTE | 2021-10-20 16:30 | ANE.PACU2 ---
Inpatient post-anesthesia follow up: Airway intact: Yes Vital signs: Temperature 97.2 F Pulse Rate 60 Respiratory Rate 18 Blood Pressure 114/91 Pulse Oximetry 97 Oxygen Delivery Me thod Room Air Oxygen Flow Rate Fraction of Inspir ed Oxygen Hydration adequate: Yes Nausea and vomiting: No Pain level: 1 Mental status: Baseline
== END 2021-10-20 10:25 | disposition home or self-care (01) ==
PROVIDERS: Anesthesiology; PCP Family Medicine; Visit Provider Surgery
PROC: 0DJ08ZZ Inspection of Upper Intestinal Tract, Via Natural or Artificial Opening Endoscopic (ICD-10-PCS; CPT 43235; principal; 2021-10-20 09:00)
PROC: 0DJD8ZZ Inspection of Lower Intestinal Tract, Via Natural or Artificial Opening Endoscopic (ICD-10-PCS; CPT 45378; 2021-10-20 09:00)
DX: K92.1 Melena (principal); F41.9 Anxiety disorder, unspecified; K21.9 Gastro-esophageal reflux disease without esophagitis; F90.9 Attention-deficit hyperactivity disorder, unspecified type; Z87.891 Personal history of nicotine dependence; C18.6 Malignant neoplasm of descending colon; K29.70 Gastritis, unspecified, without bleeding
CPT/HCPCS: 43239; 45380; 81025; 84703; 88305; 88342; J7030

== ENCOUNTER → 2021-11-02 12:52 | Outpatient (BNVA) | payer BC, MEDICAID, SELFPAY | PROVIDERS: PCP Family Medicine; Visit Provider Surgery | DX: K29.70 Gastritis, unspecified, without bleeding (principal) | CPT/HCPCS: 99213 ==

== ENCOUNTER → 2022-04-11 11:29 | Outpatient (BNVA) | payer BC, MEDICAID, SELFPAY | PROVIDERS: PCP Family Medicine; Visit Provider Clinical Nurse Specialist Adult Health | DX: J02.0 Streptococcal pharyngitis (principal) | CPT/HCPCS: 87880 ==

== ENCOUNTER → 2023-04-17 13:23 | Outpatient (BNVA) | payer BC, MEDICAID, SELFPAY | PROVIDERS: PCP Family Medicine; Visit Provider Family Medicine | DX: Z20.2 Contact with and (suspected) exposure to infections with a predominantly sexual mode of transmission (principal); R30.0 Dysuria; N76.0 Acute vaginitis; O92.70 Unspecified disorders of lactation; Z51.81 Encounter for therapeutic drug level monitoring; F90.0 Attention-deficit hyperactivity disorder, predominantly inattentive type; N63.0 Unspecified lump in unspecified breast | CPT/HCPCS: 80053; 80074; 81000; 84146; 84439; 84443; 85025; 87086; 87481; 87491; 87591; 87624; 87806 ==

== ENCOUNTER 2023-12-04 16:17 | Emergency (ER) | payer MEDICAID, SELFPAY ==
[2023-12-04 16:23] VITALS: BP 132/98; PULSE 77; RESP 18; TEMP 36.7; O2SAT 98
--- NOTE | 2023-12-04 16:36 | ED_ITS ---
Documented by User: ISRAEL John 12/04/23 16:58 HPI - GI Bleed 2 General: Chief complaint: Nausea/Vomiting/Diarrhea Stated complaint: blood in stool Time Seen by Provider: 12/04/23 16:23 Source: patient Mode of arrival: ambulatory Limitations: no limitations History of Present Illness: Patient is a 33-year-old female presents to ED today with complaint of 2 episodes of bloody stools today. She states blood was bright red blood. She states she has a history of similar symptoms. Patient underwent already at the age of 33 five colonoscopies and four endoscopies. She states she has diagnoses of irritable bowel syndrome and GERD. Patient states she does not take any medications for these. She states honestly my therapy has helped more than any meds ever did . Patient states she was concerned today because she felt lightheaded and dizzy. She does complain of some abdominal fasciculation like sensations. She is not having any abdominal pain. No vomiting or fevers. 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 She has been referred to Dr. Kline for another colonoscopy. Patient states they are supposed to be scheduling this soon. MD complaint: gross hematochezia Onset (ago): hour(s) Severity: mild Relieving factors: none Exacerbating factors: none Context: history of GI bleed Associated symptoms: Reports abdominal pain (no pain; reports abdominal wall fasciculations); Denies chills, fever(s), malaise, nausea, rash or vomiting Treatments Prior to Arrival: none Review of Systems 2 Const: Denies: fever(s), chills, body aches, fatigue or malaise Card: Denies: chest pain Resp: Denies: dyspnea GI: Reports: abdominal pain (no pain; reports abdominal wall fasciculations) and hematochezia; Denies: nausea, vomiting, diarrhea, constipation, rectal pain or melena : Denies: flank pain, difficulty voiding, dysuria, urinary frequency, urinary urgency or urinary hesitancy Musc: Denies: neck pain, back pain, extremity pain or joint pain Skin/Breast: Denies: rash PFSH ED 2 PFSH: Medical History Colon polyp Posttraumatic stress disorder Anxiety Irritable bowel syndrome with diarrhea ADHD ADD (attention deficit disorder) Gastro-esophageal reflux Surgical History History of colonoscopy (01/31/21) History of esophagogastroduodenoscopy (EGD) S/P cholecystectomy Family History Unknown Breast cancer Denies family history of Anesthesia complication Bleeding disorder Social History Smoking and tobacco/nicotine status: current some day tobacco/nicotine user pipe Pipe Details: Once a month Alcohol intake: never Substance/Drug Use: current Substance/Drug use frequency: daily Other substance/drug use details: Micro-dose Cannabis Current gender identity: Female Physical Exam 2 Const: COMMON NORMALS: no acute distress, average body habitus, patient oriented x3, no limitations, healthy appearing, alert and well nourished G ENERAL APPEARANCE: cooperative ORIENTATION/CONSCIOUSNESS: Yes awake, Yes oriented to person, Yes oriented to place and Yes oriented to time Eye: COMMON NORMALS: no scleral icterus Resp: COMMON NORMALS: normal respiratory effort and clear to auscultation bilaterally AUSCULTATION: clear to auscultation bilaterally Cardio: COMMON NORMALS: regular rate and regular rhythm RATE: regular rate RHYTHM: regular rhythm GI: COMMON NORMALS: Normal to inspection, nondistended, normoactive bowel sounds present, Soft to palpation, No hepatosplenomegaly present and no masses INSPECTION: Yes normal to inspection AUSCULTATION: Yes normoactive bowel sounds PALPATION: Yes Soft to palpation, Yes Tenderness to palpation present (GI) (some very mild discomforts-non surgical examination ), No Guarding due to palpation present (GI), No Rigid due to palpation and Yes No hepatosplenomegaly present : COMMON NORMALS: Yes no CVA tenderness BLADDER/KIDNEY EXAM: Yes no CVA tenderness Back/Pelvis: COMMON NORMALS: no CVA tenderness Extremity: GENERAL: Yes normal exam except as noted Neuro: NAHID COMA SCALE: document GCS findings Nahid coma scale eye opening: Spontaneous Nahid coma scale verbal response: Orientated [place] coma scale motor response: Obey commands [place] coma scale total score: 15 COMMON NORMALS: patient oriented x3 SENSORIUM/ORIENTATION: Yes alert, Yes oriented to person, Yes oriented to place and Yes oriented to time Skin: COMMON NORMALS: no rashes or lesions noted GENERAL SKIN EXAM: no rashes or lesions noted Course 2 Vital Signs: Vital signs: Vital Signs Temperature 98.0 F 12/04/23 16:23 Pulse Rate 76 12/04/23 16:50 Respiratory Rate 18 12/04/23 16:23 Blood Pressure 129/90 12/04/23 16:50 Pulse Oximetry 98 12/04/23 16:23 Oxygen Delivery Me thod Room Air 12/04/23 16:23 MDM - GI Bleed Lab Data 12/04/23 16:42 12/04/23 16:42 Laboratory Results WBC 5.51 10^3/uL (3.29-11.43) 12/04/23 16:42 RBC 4.92 10^6/uL (3.85-5.65) 12/04/23 16:42 Hgb 14.90 g/dL (11.27-16.99) 12/04/23 16:42 Hct 44.2 % (36-47) 12/04/23 16:42 MCV 89.8 fl (85-98) 12/04/23 16:42 MCH 30.3 pg (27-33) 12/04/23 16:42 MCHC 33.7 g/dL (30-55) 12/04/23 16:42 RDW 12.1 % (12.1-15.1) 12/04/23 16:42 Plt Count 265 10^3/cmm (157-399) 12/04/23 16:42 MPV 9.2 fL (7.4-10.4) 12/04/23 16:42 Neut % (Auto) 56.5 % 12/04/23 16:42 Lymph % (Auto) 35.0 % 12/04/23 16:42 [place] % (Auto) 5.8 % 12/04/23 16:42 Eos % (Auto) 1.8 % 12/04/23 16:42 Baso % (Auto) 0.7 % 12/04/23 16:42 Neut # (Auto) 3.11 10^3/uL (1.8-7.7) 12/04/23 16:42 Lymph # (Auto) 1.9 10^3/uL (0.8-4.8) 12/04/23 16:42 [place] # (Auto) 0.3 10^3/uL (0.2-0.9) 12/04/23 16:42 Eos # (Auto) 0.1 10^3/uL (0.0-0.8) 12/04/23 16:42 Baso # (Auto) 0.0 10^3/uL (0.0-0.1) 12/04/23 16:42 Nucleated RBC % (auto) 0 % 12/04/23 16:42 Nucleated RBCs # 0.0 /100WBC 12/04/23 16:42 PT 13.10 SECONDS (12.1-14.9) 12/04/23 16:42 INR 0.97 (0.8-1.2) 12/04/23 16:42 APTT 24.5 SECONDS (23.9-36.7) 12/04/23 16:42 Sodium 141 mmol/L (136-145) 12/04/23 16:42 Potassium 4.1 mmol/L (3.5-5.1) 12/04/23 16:42 Chloride 103 mmol/L (98-107) 12/04/23 16:42 Carbon Dioxide 25 mmol/L (22-29) 12/04/23 16:42 Anion Gap 17.1 (5-19) 12/04/23 16:42 BUN 8 mg/dL (6-20) 12/04/23 16:42 Creatinine 0.8 mg/dL (0.5-0.9) 12/04/23 16:42 GFR Calculation 83.1 mL/min (90-130) L 12/04/23 16:42 Glucose 90 mg/dL (65-115) 12/04/23 16:42 Calculated Osmolality 290 mOsm/kg (285-295) 12/04/23 16:42 Calcium 9.5 mg/dL (8.5-10.5) 12/04/23 16:42 Total Bilirubin 0.6 mg/dL (0.15-1.2) 12/04/23 16:42 AST 12 U/L (0-32) 12/04/23 16:42 ALT 14 U/L (0-33) 12/04/23 16:42 Alkaline Phosphatase 79 U/L (35-105) 12/04/23 16:42 Total Protein 8.2 g/dL (6.6-8.7) 12/04/23 16:42 Albumin 5.0 g/dL (3.5-5.2) 12/04/23 16:42 Globulin 3.2 g/dL (1.3-4.6) 12/04/23 16:42 HCG, Qual Negative (Negative) 12/04/23 16:42 Urine Color Yellow (Yellow) 12/04/23 18:12 Urine Appearance Clear (CLEAR) 12/04/23 18:12 Urine pH 7.0 (5-7) 12/04/23 18:12 Ur Specific [place] 1.011 (1.005-1.030) 12/04/23 18:12 Urine Protein Negative (Negative) 12/04/23 18:12 Urine Glucose (UA) Negative (Normal) 12/04/23 18:12 Urine Ketones Negative (Negative) 12/04/23 18:12 Urine Blood Negative (Negative) 12/04/23 18:12 Urine Nitrate Negative (Negative) 12/04/23 18:12 Urine Bilirubin Negative (Negative) 12/04/23 18:12 Urine Urobilinogen 1.0 mg/dL (Negative) 12/04/23 18:12 Ur Leukocyte Esterase Negative (Negative) 12/04/23 18:12 Urine RBC Not Reportable 12/04/23 18:12 Urine WBC Not Reportable 12/04/23 18:12 Ur Squamous Epith Cells Not Reportable 12/04/23 18:12 Amorphous Sediment Not Reportable 12/04/23 18:12 Urine Bacteria Not Reportable 12/04/23 18:12 No radiology studies performed this visit Discharge Plan Discharge Patient Disposition: Home Clinical Impression: Bloody stools Condition: Stable Prescriptions: No Action ketoconazole 2 % shampoo 1 applic topical .Q7 days Qty: 120 0RF ondansetron HCl 4 mg tablet 4 mg PO Q8H PRN (Reason: nausea and vomiting) Qty: 30 1RF lisdexamfetamine 30 mg capsule 30 mg PO DAILY 30 Days Qty: 30 0RF Discharge Orders: Discharge ED (Routine); Ordered 12/04/23 Ordered By: Lb Montes Referrals: Darian Rviera MD [Primary Care Provider] - Discharge Diet: Usual diet Discharge Activity: Increase activity as tolerated Patient Instructions: Pain Management Activity Restrictions/Additional Instructions: Continue plan follow-up with Dr. Kline. Continue medications at home. Plenty of fluids. Monitor for any new or worsening symptoms and return for reevaluation as needed. Sign Out Sign Out Data: Patient Sign Out occurred on 12/04/23 at 17:02. Patient's care was discussed, and care was transferred from ISRAEL John to ISRAEL Fletcher. Coding Level of Care Code ED Maintenance Custodian for Chg Fwd Documented by User: ISRAEL Fletcher 12/04/23 18:26 HPI - GI Bleed 2 General: Chief complaint: Nausea/Vomiting/Diarrhea Stated complaint: blood in stool Time Seen by Provider: 12/04/23 16:23 PFSH ED 2 PFSH: Medical History Colon polyp Posttraumatic stress disorder Anxiety Irritable bowel syndrome with diarrhea ADHD ADD (attention deficit disorder) Gastro-esophageal reflux Surgical History History of colonoscopy (01/31/21) History of esophagogastroduodenoscopy (EGD) S/P cholecystectomy Family History Unknown Breast cancer Denies family history of Anesthesia complication Bleeding disorder Social History Smoking and tobacco/nicotine status: current some day tobacco/nicotine user pipe Pipe Details: Once a month Alcohol intake: never Substance/Drug Use: current Substance/Drug use frequency: daily Other substance/drug use details: Micro-dose Cannabis Current gender identity: Female Physical Exam 2 Neuro: NAHID COMA SCALE: document GCS findings Nahid coma scale total score: 15 Course 2 Vital Signs: Vital signs: Vital Signs Temperature 98.0 F 12/04/23 16:23 Pulse Rate 76 12/04/23 16:50 Respiratory Rate 18 12/04/23 16:23 Blood Pressure 129/90 12/04/23 16:50 Pulse Oximetry 98 12/04/23 16:23 Oxygen Delivery Sd thod Room Air 12/04/23 16:23 MDM - GI Bleed Medical Decision Making Care of patient transferred to ok by ISRAEL John. Patient has multiple workups for bloody stools and abdominal pain in the past, has received a total of 5 colonoscopies and is set for sixth for chronic bloody stools. Diagnosed with irritable bowel syndrome. Patient had reported bloody stools again, labs were all negative today. No reason for imaging at this time as she recently had CT examination was normal. She will continue follow-up with Dr. Kline as planned, and return precautions given. Lab Data 12/04/23 16:42 12/04/23 16:42 Laboratory Results WBC 5.51 10^3/uL (3.29-11.43) 12/04/23 16:42 RBC 4.92 10^6/uL (3.85-5.65) 12/04/23 16:42 Hgb 14.90 g/dL (11.27-16.99) 12/04/23 16:42 Hct 44.2 % (36-47) 12/04/23 16:42 MCV 89.8 fl (85-98) 12/04/23 16:42 MCH 30.3 pg (27-33) 12/04/23 16:42 MCHC 33.7 g/dL (30-55) 12/04/23 16:42 RDW 12.1 % (12.1-15.1) 12/04/23 16:42 Plt Count 265 10^3/cmm (157-399) 12/04/23 16:42 MPV 9.2 fL (7.4-10.4) 12/04/23 16:42 Neut % (Auto) 56.5 % 12/04/23 16:42 Lymph % (Auto) 35.0 % 12/04/23 16:42 [place] % (Auto) 5.8 % 12/04/23 16:42 Eos % (Auto) 1.8 % 12/04/23 16:42 Baso % (Auto) 0.7 % 12/04/23 16:42 Neut # (Auto) 3.11 10^3/uL (1.8-7.7) 12/04/23 16:42 Lymph # (Auto) 1.9 10^3/uL (0.8-4.8) 12/04/23 16:42 [place] # (Auto) 0.3 10^3/uL (0.2-0.9) 12/04/23 16:42 Eos # (Auto) 0.1 10^3/uL (0.0-0.8) 12/04/23 16:42 Baso # (Auto) 0.0 10^3/uL (0.0-0.1) 12/04/23 16:42 Nucleated RBC % (auto) 0 % 12/04/23 16:42 Nucleated RBCs # 0.0 /100WBC 12/04/23 16:42 PT 13.10 SECONDS (12.1-14.9) 12/04/23 16:42 INR 0.97 (0.8-1.2) 12/04/23 16:42 APTT 24.5 SECONDS (23.9-36.7) 12/04/23 16:42 Sodium 141 mmol/L (136-145) 12/04/23 16:42 Potassium 4.1 mmol/L (3.5-5.1) 12/04/23 16:42 Chloride 103 mmol/L (98-107) 12/04/23 16:42 Carbon Dioxide 25 mmol/L (22-29) 12/04/23 16:42 Anion Gap 17.1 (5-19) 12/04/23 16:42 BUN 8 mg/dL (6-20) 12/04/23 16:42 Creatinine 0.8 mg/dL (0.5-0.9) 12/04/23 16:42 GFR Calculation 83.1 mL/min (90-130) L 12/04/23 16:42 Glucose 90 mg/dL (65-115) 12/04/23 16:42 Calculated Osmolality 290 mOsm/kg (285-295) 12/04/23 16:42 Calcium 9.5 mg/dL (8.5-10.5) 12/04/23 16:42 Total Bilirubin 0.6 mg/dL (0.15-1.2) 12/04/23 16:42 AST 12 U/L (0-32) 12/04/23 16:42 ALT 14 U/L (0-33) 12/04/23 16:42 Alkaline Phosphatase 79 U/L (35-105) 12/04/23 16:42 Total Protein 8.2 g/dL (6.6-8.7) 12/04/23 16:42 Albumin 5.0 g/dL (3.5-5.2) 12/04/23 16:42 Globulin 3.2 g/dL (1.3-4.6) 12/04/23 16:42 HCG, Qual Negative (Negative) 12/04/23 16:42 Urine Color Yellow (Yellow) 12/04/23 18:12 Urine Appearance Clear (CLEAR) 12/04/23 18:12 Urine pH 7.0 (5-7) 12/04/23 18:12 Ur Specific [place] 1.011 (1.005-1.030) 12/04/23 18:12 Urine Protein Negative (Negative) 12/04/23 18:12 Urine Glucose (UA) Negative (Normal) 12/04/23 18:12 Urine Ketones Negative (Negative) 12/04/23 18:12 Urine Blood Negative (Negative) 12/04/23 18:12 Urine Nitrate Negative (Negative) 12/04/23 18:12 Urine Bilirubin Negative (Negative) 12/04/23 18:12 Urine Urobilinogen 1.0 mg/dL (Negative) 12/04/23 18:12 Ur Leukocyte Esterase Negative (Negative) 12/04/23 18:12 Urine RBC Not Reportable 12/04/23 18:12 Urine WBC Not Reportable 12/04/23 18:12 Ur Squamous Epith Cells Not Reportable 12/04/23 18:12 Amorphous Sediment Not Reportable 12/04/23 18:12 Urine Bacteria Not Reportable 12/04/23 18:12 Discharge Plan Discharge Patient Disposition: Home Clinical Impression: Bloody stools Condition: Stable Prescriptions: No Action ketoconazole 2 % shampoo 1 applic topical .Q7 days Qty: 120 0RF ondansetron HCl 4 mg tablet 4 mg PO Q8H PRN (Reason: nausea and vomiting) Qty: 30 1RF lisdexamfetamine 30 mg capsule 30 mg PO DAILY 30 Days Qty: 30 0RF Discharge Orders: Discharge ED (Routine); Ordered 12/04/23 Ordered By: Lb Montes Referrals: Darian Rivera MD [Primary Care Provider] - Discharge Diet: Usual diet Discharge Activity: Increase activity as tolerated Patient Instructions: Pain Management Activity Restrictions/Additional Instructions: Continue plan follow-up with Dr. Kline. Continue medications at home. Plenty of fluids. Monitor for any new or worsening symptoms and return for reevaluation as needed. Sign Out Sign Out Data: Patient Sign Out occurred on 12/04/23 at 17:02. Patient's care was discussed, and care was transferred from ISRAEL John to ISRAEL Fletcher. Coding Level of Care Code ED Maintenance Custodian for Nick Ford
[2023-12-04 16:50] VITALS: BP 128/91; BP 129/90; BP 137/95; PULSE 76; PULSE 79; PULSE 86
[2023-12-04 16:56] LABS: Basophils % 0.7 %; Eosinophils # 0.1 10^3/uL (0.0-0.8); Eosinophils % 1.8 %; Hematocrit 44.2 % (36-47); Lymphocytes # 1.9 10^3/uL (0.8-4.8); Mean Corpuscular HGB Conc 33.7 g/dL (30-55); Mean Corpuscular Hemoglobin 30.3 pg (27-33); Mean Corpuscular Volume 89.8 fl (85-98); Mean Platelet Volume 9.2 fL (7.4-10.4); Monocytes # 0.3 10^3/uL (0.2-0.9); Monocytes % 5.8 %; Neutrophils # 3.11 10^3/uL (1.8-7.7); Neutrophils % 56.5 %; Nucleated Red Blood Cells % 0 %; Platelet Count 265 10^3/cmm (157-399); Red Blood Count 4.92 10^6/uL (3.85-5.65); Red Cell Distribution Width 12.1 % (12.1-15.1); White Blood Count 5.51 10^3/uL (3.29-11.43)
[2023-12-04] MEDS: sodium chloride 0.9% 1,000 ML 999 ML IV (17:05)
[2023-12-04 17:10] LABS: Alanine Aminotransferase 14 U/L (0-33); Alkaline Phosphatase 79 U/L (35-105); Anion Gap 17.1 (5-19); Aspartate Amino Transferase 12 U/L (0-32); Blood Urea Nitrogen 8 mg/dL (6-20); Calcium 9.5 mg/dL (8.5-10.5); Carbon Dioxide 25 mmol/L (22-29); Chloride 103 mmol/L (98-107); Globulin 3.2 g/dL (1.3-4.6); Glomerular Filtration Rate 83.1 mL/min (90-130); Glucose 90 mg/dL (65-115); Osmolality Calculated 290 mOsm/kg (285-295); Potassium 4.1 mmol/L (3.5-5.1); Sodium 141 mmol/L (136-145); Total Bilirubin 0.6 mg/dL (0.15-1.2); Total Protein 8.2 g/dL (6.6-8.7)
[2023-12-04 17:17] LABS: HCG, Serum Qual Negative (Negative)
[2023-12-04 17:37] LABS: INR 0.97 (0.8-1.2)
[2023-12-04 17:38] LABS: Partial Thromboplastin Time 24.5 SECONDS (23.9-36.7)
[2023-12-04 17:45] VITALS: BP 123/85
[2023-12-04 18:11] VITALS: BP 117/84; PULSE 65; O2SAT 99
[2023-12-04 18:15] LABS: Charge for UA Resulting for Rev
[2023-12-04 18:19] LABS: Bilirubin Urine Negative (Negative); Blood Urine Negative (Negative); Glucose Urine UA Negative (Normal); Ketones Urine Negative (Negative); Leukocyte Esterase Urine Negative (Negative); Nitrate Urine Negative (Negative); Protein Urine Negative (Negative); Specific Gravity, Urine 1.011 (1.005-1.030); Urine Appearance Clear (CLEAR); Urine Color Yellow (Yellow)
[2023-12-04 18:30] VITALS: BP 122/80; PULSE 61; O2SAT 98
[2023-12-04 18:36] VITALS: BP 126/78; PULSE 62; O2SAT 97
== END 2023-12-04 18:58 | disposition home or self-care (01) ==
PROVIDERS: Physician Assistant; Emergency Provider Physician Assistant; PCP Family Medicine
DX: K92.1 Melena (principal); F17.290 Nicotine dependence, other tobacco product, uncomplicated
CPT/HCPCS: 80053; 81003; 81015; 84703; 85025; 85610; 85730; 99284; J7030

== ENCOUNTER → 2024-07-15 09:17 | Outpatient (BNVA) | payer MEDICAID, SELFPAY | PROVIDERS: PCP Family Medicine; Visit Provider Emergency Medicine | DX: R39.9 Unspecified symptoms and signs involving the genitourinary system (principal) | CPT/HCPCS: 81000; 87086 ==

== ENCOUNTER 2025-02-10 11:07 | Emergency (ER) | payer MEDICAID, SELFPAY ==
[2025-02-10 11:08] VITALS: BP 143/96; PULSE 95; TEMP 37.2; O2SAT 99
--- NOTE | 2025-02-10 11:15 | W.ED.ABDPA2 ---
HPI - Abdominal Pain General: Chief Complaint: Abdominal Pain Stated Complaint: R side pain, dizzy, weakness Time Seen by Provider: 02/10/25 11:15 History of Present Illness: 35-year-old female with a history of PTSD, irritable bowel syndrome, ADHD and GERD who presents the emergency room with right rib pain. She says this started a few days ago when she was doing yoga. She says right after it started hurting it hurts to palpation and hurts when she breathes or moves. No cough. She said she was worried because it has not gotten any better. No fevers. Related Data Home Medications ?Medication ?Instructions ?Recorded ?Confirmed aripiprazole 2 mg tablet (Abilify) 2 mg PO DAILY 03/06/24 07/15/24 escitalopram oxalate 20 mg tablet 20 mg PO DAILY 03/06/24 07/15/24 Previous Rx's ?Medication ?Instructions ?Recorded ciprofloxacin HCl 500 mg tablet 500 mg PO BID 5 days #10 tabs 07/15/24 ondansetron 4 mg disintegrating 4 mg PO Q6H PRN nausea and 07/15/24 tablet vomiting #12 tabs dextroamphetamine-amphetamine ER 25 mg PO DAILY 30 days #30 caps 01/12/25 25 mg 24hr capsule,extend release (Adderall XR) cyclobenzaprine 10 mg tablet 10 mg PO Q8H PRN muscle spasm #20 02/10/25 tabs diclofenac sodium 50 mg 50 mg PO BID PRN pain #14 tabs 02/10/25 tablet,delayed release Allergies Allergy/AdvReac Type Severity Reaction Status Date / Time bupropion (From Wellbutrin) Allergy angry Verified 02/10/25 11:14 duloxetine (From Cymbalta) Allergy nausea Verified 02/10/25 11:14 topiramate Allergy ADR-Anxiety Verified 02/10/25 11:14 Review of Systems Narrative: Constitutional symptoms: Negative except as documented in HPI. Skin symptoms: Negative except as documented in HPI. Eye symptoms: Negative except as documented in HPI. ENMT symptoms: Negative except as documented in HPI. Respiratory symptoms: Negative except as documented in HPI. Cardiovascular symptoms: Negative except as documented in HPI. Gastrointestinal symptoms: Negative except as documented in HPI. Genitourinary symptoms: Negative except as documented in HPI. Musculoskeletal symptoms: Negative except as documented in HPI. Neurologic symptoms: Negative except as documented in HPI. Psychiatric symptoms: Negative except as documented in HPI. Endocrine symptoms: Negative except as documented in HPI. PFSH ED PFSH: Medical History (Updated 02/10/25 @ 12:35 by Lakshmi Hugo MD) Colon polyp Posttraumatic stress disorder Diagnosed at age 22 Anxiety Irritable bowel syndrome with diarrhea ADHD Diagnosed at age 30 ADD (attention deficit disorder) Gastro-esophageal reflux Surgical History History of colonoscopy (01/31/21) History of esophagogastroduodenoscopy (EGD) S/P cholecystectomy Family History Unknown Breast cancer Denies family history of Anesthesia complication Bleeding disorder Social History Smoking and tobacco/nicotine status: never used tobacco/nicotine Alcohol intake: never Substance/Drug Use: current Substance/Drug use frequency: daily Other substance/drug use details: Micro-dose Cannabis Current gender identity: Female Physical Exam Narrative: EXAM NARRATIVE: General: Alert, no acute distress. Skin: Warm, dry. Head: Normocephalic, atraumatic. Neck: Supple, trachea midline. Eye: Extraocular movements are intact. Ears, nose, mouth and throat: mucosa moist. Cardiovascular: Regular, Normal peripheral perfusion. Respiratory: Lungs are clear to auscultation, respirations are non-labored, breath sounds are equal, Symmetrical chest wall expansion. Some point tenderness in the ribs in the lower right lateral rib cage. Gastrointestinal: Soft, Nontender, Non distended Musculoskeletal: Normal ROM, no deformity. Neurological: Alert and oriented, No focal neurological deficit observed. Psychiatric: Cooperative, appropriate mood & affect. Course Vital Signs: Vital signs: Vital Signs Temperature 98.9 F 02/10/25 11:08 Pulse Rate 81 02/10/25 12:30 Blood Pressure 116/78 02/10/25 12:30 Pulse Oximetry 99 02/10/25 12:30 Oxygen Delivery Me thod Room Air 02/10/25 12:30 MDM - Abdominal Pain Medical Decision Making Medical decision making: Differential diagnosis including but not limited to and based on the above HPI, review of systems and physical exam: In this patient with rib pain she most likely has musculoskeletal pain and a strain of the muscles of the ribs, but we will rule out pneumonia and PE with x-rays and a D-dimer. Basic lab work as well. Urinalysis to rule out a kidney infection or kidney stones. Orders placed to evaluate differential diagnosis based on the above differential, HPI and physical exam Chest x-ray: No acute process. No infiltrate. No pneumothorax. This was reviewed and interpreted by myself the emergency room physician. I also reviewed the radiology report. Lab Review: Laboratory results were reviewed and interpreted by myself the emergency room physician. No leukocytosis. No anemia. No renal failure. Urinalysis is negative for infection. She does have a small amount of blood but she says she is on her period. test is negative. CRP is negative. I reviewed the patient's medical record. Reexamination: Patient remained stable. No increased work of breathing. No altered mental status. No focal motor deficits. No oxygen requirements. No increased work of breathing. Assessment and plan: Rib pain - Discharged home - Discussed plan with patient. Answered any questions. - Evaluation and treatment of this problem were appropriate in the emergency setting. Lab Data 02/10/25 11:33 02/10/25 11:33 Labs/Radiology: Radiology Impressions Chest X-Ray 02/10/25 11:17 Impression: Negative chest. Laboratory Results WBC 5.08 10^3/uL (3.29-11.43) 02/10/25 11:33 RBC 4.69 10^6/uL (3.85-5.65) 02/10/25 11:33 Hgb 13.70 g/dL (11.27-16.99) 02/10/25 11:33 Hct 41.8 % (36-47) 02/10/25 11:33 MCV 89.1 fl (85-98) 02/10/25 11:33 MCH 29.2 pg (27-33) 02/10/25 11:33 MCHC 32.8 g/dL (30-55) 02/10/25 11:33 RDW 12.5 % (12.1-15.1) 02/10/25 11:33 Plt Count 282 10^3/cmm (157-399) 02/10/25 11:33 MPV 9.0 fL (7.4-10.4) 02/10/25 11:33 Neut % (Auto) 59.3 % 02/10/25 11:33 Lymph % (Auto) 30.1 % 02/10/25 11:33 Deuel % (Auto) 6.3 % 02/10/25 11:33 Eos % (Auto) 3.1 % 02/10/25 11:33 Baso % (Auto) 1.0 % 02/10/25 11:33 Neut # (Auto) 3.01 10^3/uL (1.8-7.7) 02/10/25 11:33 Lymph # (Auto) 1.5 10^3/uL (0.8-4.8) 02/10/25 11:33 Deuel # (Auto) 0.3 10^3/uL (0.2-0.9) 02/10/25 11:33 Eos # (Auto) 0.2 10^3/uL (0.0-0.8) 02/10/25 11:33 Baso # (Auto) 0.1 10^3/uL (0.0-0.1) 02/10/25 11:33 Nucleated RBC % (auto) 0 % 02/10/25 11:33 Nucleated RBCs # 0.0 /100WBC 02/10/25 11:33 D-Dimer 0.33 ug/mLFEU (0-0.59) 02/10/25 11:33 Sodium 138 mmol/L (136-145) 02/10/25 11:33 Potassium 4.1 mmol/L (3.5-5.1) 02/10/25 11:33 Chloride 103 mmol/L (98-107) 02/10/25 11:33 Carbon Dioxide 23 mmol/L (22-29) 02/10/25 11:33 Anion Gap 16.1 (5-19) 02/10/25 11:33 BUN 14 mg/dL (6-20) 02/10/25 11:33 Creatinine 1.0 mg/dL (0.5-0.9) H 02/10/25 11:33 GFR Calculation 63.5 mL/min (90-130) L 02/10/25 11:33 Glucose 104 mg/dL (65-115) 02/10/25 11:33 Calculated Osmolality 287 mOsm/kg (285-295) 02/10/25 11:33 Lactic Acid 1.1 mmol/L (0.5-2.2) 02/10/25 11:33 Calcium 8.8 mg/dL (8.5-10.5) 02/10/25 11: Total Bilirubin 0.4 mg/dL (0.15-1.2) 02/10/25 11:33 AST 14 U/L (0-32) 02/10/25 11: ALT 15 U/L (0-33) 02/10/25 11:33 Alkaline Phosphatase 73 U/L (35-105) 02/10/25 11:33 C-Reactive Protein 3.0 mg/L (0.0-4.9) 02/10/25 11:33 Total Protein 7.4 g/dL (6.6-8.7) 02/10/25 11: Albumin 4.5 g/dL (3.5-5.2) 02/10/25 11: Globulin 2.9 g/dL (1.3-4.6) 02/10/25 11:33 HCG, Qual Negative (Negative) 02/10/25 11:33 Urine Color Yellow (Yellow) 02/10/25 11:33 Urine Appearance Turbid (CLEAR) A 02/10/25 11: Urine pH 8.0 (5-7) A 02/10/25 11: Ur Specific Wilmot 1.019 (1.005-1.030) 02/10/25 11:33 Urine Protein Negative (Negative) 02/10/25 11:33 Urine Glucose (UA) Negative (Normal) 02/10/25 11:33 Urine Ketones Negative (Negative) 02/10/25 11:33 Urine Blood Non-haemolysed trace (Negative) 02/10/25 11:33 Urine Nitrate Negative (Negative) 02/10/25 11:33 Urine Bilirubin Negative (Negative) 02/10/25 11:33 Urine Urobilinogen 0.2 mg/dL (Negative) 02/10/25 11:33 Ur Leukocyte Esterase Negative (Negative) 02/10/25 11:33 Urine RBC 0-4 /hpf (0-2) H 02/10/25 11:33 Urine WBC None /hpf (0-5) 02/10/25 11:33 Ur Squamous Epith Cells 0-4 /hpf (0-5) H 02/10/25 11:33 Amorphous Sediment 2+ /hpf 02/10/25 11:33 Urine Bacteria Trace /hpf (NONE) 02/10/25 11:33 Urine Mucus Trace /hpf 02/10/25 11:33 All radiology interpretation(s) finalized by discharge Discharge Plan Discharge Patient Disposition: Home Clinical Impression: Rib sprain Condition: Stable Prescriptions: New cyclobenzaprine 10 mg tablet 10 mg PO Q8H PRN (Reason: muscle spasm) Qty: 20 0RF diclofenac sodium 50 mg tablet,delayed release (DR/EC) 50 mg PO BID PRN (Reason: pain) Qty: 14 0RF No Action aripiprazole [Abilify] 2 mg tablet 2 mg PO DAILY escitalopram oxalate 20 mg tablet 20 mg PO DAILY ciprofloxacin HCl 500 mg tablet 500 mg PO BID 5 Days Qty: 10 0RF ondansetron 4 mg tablet,disintegrating 4 mg PO Q6H PRN (Reason: nausea and vomiting) Qty: 12 0RF Rx Instructions: 340b please dextroamphetamine-amphetamine [Adderall XR] 25 mg capsule,extended release 24hr 25 mg PO DAILY 30 Days Qty: 30 0RF Discharge Orders: Discharge ED (Routine); Ordered 02/10/25 Ordered By: Lakshmi Hugo Referrals: Darian Rivera MD [Primary Care Provider, Family Practice] Discharge Diet: Usual diet Discharge Activity: Increase activity as tolerated Patient Instructions: Opioid Safety, Pain Management, Patient Portal & Le Instructions Activity Restrictions/Additional Instructions: Thank you for choosing [facility] for your healthcare needs today. You have been screened and evaluated and felt safe for discharge. Health conditions do change or evolve sometimes and as such it is important that you follow up with your Primary Doctor to be re checked, 3-5 days is a general good time frame for follow up. You are always welcome to return to the ED for re assessment if your symptoms are worsening or you have new concerns Print Language: Macedonian Coding Level of Care Code ED Quality Technician Fiberglass for Nick Ford
--- NOTE | 2025-02-10 11:17 | XR_ITS ---
WS: [id number] Portable AP upright chest, 02/10/2025 Clinical Data: Chest pain Comparison: Portable chest, 06/26/2019 Findings: No nodules, masses or effusions are seen. The heart is normal. The pulmonary vascularity is not increased. No pneumonia or pneumothorax is seen. XR/XR chest 1V portable [id number] Impression: Negative chest.
--- OUTSIDE RECORDS SUMMARY | 2025-02-10 11:24 | XMS_ITS | Encounter Summary ---
Author Organization [employer] [facility] Address [address] [place] [address] Care Team Providers Care Remelt Pan Tank Operator Name Role Phone Unavailable Primary Care Provider Unavailabl e Encounter Details Date Type Department Care Team (Latest Contact Info) Description 03/20/2002 Outpatient Historical [facility] Erich Terrell MD [address] [place] [id number] Routine child health exam (Primary Dx) Social History Tobacco Use Types Packs/Day Years Used Date Smoking Tobacco: Never Assessed Comments Unknown Sex and Gender Information Value Date Recorded Sex Assigned at Not on file Legal 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
--- OUTSIDE RECORDS SUMMARY | 2025-02-10 11:24 | XMS_ITS | Encounter Summary ---
Author Organization 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
--- OUTSIDE RECORDS SUMMARY | 2025-02-10 11:24 | XMS_ITS | Encounter Summary ---
Author Organization [employer] [facility] Address [address] [place] [address] Care Team Providers Care Sander Setter Name Role Phone Unavailable Primary Care Provider Unavailabl e Encounter Details Date Type Department Care Team (Latest Contact Info) Description 07/04/2001 Outpatient Historical [facility] Erich Terrell MD [address] [place] [id number] ACUTE PHARYNGITIS (Primary Dx); BRONCHITIS NOS Social History Tobacco Use Types Packs/Day Years Used Date Smoking Tobacco: Never Assessed Comments Unknown Sex and Gender Information Value Date Recorded Sex Assigned at Not on file Legal Sex Female 2:43 AM ENDOSCOPY RN Gender Identity Not on file Sexual Orientation Not on file documented as of this encounter Plan of Treatment Not on file documented as of this encounter Visit Diagnoses Diagnosis Acute pharyngitis- Primary Bronchitis, not specified as acute or chronic documented in this encounter
--- OUTSIDE RECORDS SUMMARY | 2025-02-10 11:24 | XMS_ITS | Encounter Summary ---
Author Organization [employer] [facility] Address [address] [place] [address] Care Team Providers Care Translation Director Name Role Phone Unavailable Primary Care Provider Unavailabl e Encounter Details Date Type Department Care Team (Latest Contact Info) Description 07/16/2001 Outpatient Historical [facility] Erich Terrell MD [address] [place] [phone] BRONCHITIS NOS (Primary Dx); LABYRINTHITIS NOS Social History Tobacco Use Types Packs/Day Years Used Date Smoking Tobacco: Never Assessed Comments Unknown Sex and Gender Information Value Date Recorded Sex Assigned at Not on file Legal 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
--- OUTSIDE RECORDS SUMMARY | 2025-02-10 11:24 | XMS_ITS | Clinical Summary ---
Author Organization [employer] [facility] Address [address] Attn: [place] [address] Care Team Providers Care Ladler Name Role Phone Unavailable Primary Care Provider Unavailabl e Immunizations Immunization Administration Dates Next Due (M-M-R II/PRIORIX)(12 MO UP) MEASLES, MUMPS AND RUBELLA VIRUS VACCINE, 0.5 ML IM/SUBCUT 05/11/1995,04/26/1992 (TDVAX)(7 YRS UP) TETANUS AN D DIPHTHERIA TOXOIDS, ADSORBED (2 LF OF TETANUS TOXOID AND 2 LF OF DIPHTHERIA TOXOID), 0.5ML (PF), IM 03/20/2002 Dt Dtp Dtap Vaccine 05/11/1995, 3,1991,1991,1991 HIB, Unspecified Formulation 04/26/1992,07/24/18 92,1991 IPV/OPV 05/11/1995, 3,1991,1990 Social History Tobacco Use Types Packs/Day Years Used Date Smoking Tobacco: Never Assessed Comments Unknown Sex and Gender Information Value Date Recorded Sex Assigned at Not on file 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
--- OUTSIDE RECORDS SUMMARY | 2025-02-10 11:24 | XMS_ITS | Encounter Summary ---
Author Organization [facility] Address [address] [place] [address] Care Team Providers Care Associate Music Professor Name Role Phone Unavailable Primary Care Provider Unavailabl e Encounter Details Date Type Department Care Team (Latest Contact Info) Description 04/13/1998 Outpatient Historical [facility] German Mirza NO ADDRESS ON FILE Vaginitis and vulvovaginitis, unspecified (Primary Dx) Social History Tobacco Use Types Packs/Day Years Used Date Smoking Tobacco: Never Assessed Comments Unknown Sex and Gender Information Value Date Recorded Sex Assigned at Not on file Legal Sex Female 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
--- OUTSIDE RECORDS SUMMARY | 2025-02-10 11:24 | XMS_ITS | Encounter Summary ---
Author Organization [employer] [facility] Address [address] [place] [address] Care Team Providers Care Box Spinner Name Role Phone Unavailable Primary Care Provider Unavailabl e Encounter Details Date Type Department Care Team (Latest Contact Info) Description 10/31/1999 Outpatient Historical [facility] Erich Terrell MD [address] [place] [phone] Impetigo (Primary Dx) Social History Tobacco Use Types Packs/Day Years Used Date Smoking Tobacco: Never Assessed Comments Unknown Sex and Gender Information Value Date Recorded Sex Assigned at Not on file Legal Sex Female 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
--- OUTSIDE RECORDS SUMMARY | 2025-02-10 11:24 | XMS_ITS | Encounter Summary ---
Author Organization [facility] Address [address] [place] [address] Care Team Providers Care Humidifier Attendant Name Role Phone Unavailable Primary Care Provider Unavailabl e Encounter Details Date Type Department Care Team (Latest Contact Info) Description 06/08/1998 Outpatient Historical [facility] German Mirza NO ADDRESS ON FILE Acute upper respiratory infections of unspecified site (Primary Dx) Social History Tobacco Use Types Packs/Day Years Used Date Smoking Tobacco: Never Assessed Comments Unknown Sex and Gender Information Value Date Recorded Sex Assigned at Not on file Legal Sex Female 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
--- OUTSIDE RECORDS SUMMARY | 2025-02-10 11:24 | XMS_ITS | Encounter Summary ---
Author Organization [employer] [facility] Address [address] [place] [address] Care Team Providers Care Semiautomatic Stitcher Operator Name Role Phone Unavailable Primary Care Provider Unavailabl e Encounter Details Date Type Department Care Team (Latest Contact Info) Description 11/01/2001 Outpatient Historical [facility] Erich Terrell MD [address] [place] [phone] ABDOMINAL PAIN UNSPEC SITE (Primary Dx); GASTROINTEST HEMORR NOS Social History Tobacco Use Types Packs/Day Years Used Date Smoking Tobacco: Never Assessed Comments Unknown Sex and Gender Information Value Date Recorded Sex Assigned at Not on file Legal 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
[2025-02-10 11:58] LABS: Glucose Urine UA Negative (Normal); Nitrate Urine Negative (Negative); Specific Gravity, Urine 1.019 (1.005-1.030)
[2025-02-10 12:04] LABS: Hematocrit 41.8 % (36-47); Hemoglobin 13.70 g/dL (11.27-16.99); Mean Corpuscular HGB Conc 32.8 g/dL (30-55); Mean Corpuscular Hemoglobin 29.2 pg (27-33); Mean Corpuscular Volume 89.1 fl (85-98); Nucleated Red Blood Cells % 0 %; Platelet Count 282 10^3/cmm (157-399); Red Blood Count 4.69 10^6/uL (3.85-5.65); White Blood Count 5.08 10^3/uL (3.29-11.43)
[2025-02-10 12:18] LABS: Alanine Aminotransferase 15 U/L (0-33); Albumin Level 4.5 g/dL (3.5-5.2); Alkaline Phosphatase 73 U/L (35-105); Anion Gap 16.1 (5-19); Aspartate Amino Transferase 14 U/L (0-32); Blood Urea Nitrogen 14 mg/dL (6-20); Calcium 8.8 mg/dL (8.5-10.5); Carbon Dioxide 23 mmol/L (22-29); Chloride 103 mmol/L (98-107); Creatinine Clr Calc Pharmacy 81.8914; Globulin 2.9 g/dL (1.3-4.6); Glucose 104 mg/dL (65-115); HCG, Serum Qual Negative (Negative); Osmolality Calculated 287 mOsm/kg (285-295); Potassium 4.1 mmol/L (3.5-5.1); Sodium 138 mmol/L (136-145); Total Protein 7.4 g/dL (6.6-8.7)
[2025-02-10 12:19] LABS: Lactic Sepsis W/Reflex 1.1 mmol/L (0.5-2.2)
[2025-02-10 12:30] VITALS: BP 116/78; PULSE 81; O2SAT 99
[2025-02-10 12:45] VITALS: BP 123/71; PULSE 85; O2SAT 98
== END 2025-02-10 12:46 | disposition home or self-care (01) ==
PROVIDERS: Emergency Provider Emergency Medicine; PCP Family Medicine
DX: S23.41XA Sprain of ribs, initial encounter (principal); X58.XXXA Exposure to other specified factors, initial encounter; Y93.42 Activity, yoga
CPT/HCPCS: 36415; 71045; 80053; 81001; 83605; 84703; 85025; 85378; 86140; 99284

== ENCOUNTER → 2025-04-22 14:41 | Outpatient (BNVA) | payer MEDICAID, SELFPAY | PROVIDERS: PCP Family Medicine; Visit Provider Family Medicine | DX: R19.7 Diarrhea, unspecified (principal) | CPT/HCPCS: 87045; 87427; 87449; 87493 ==